=== PATIENT | male | born 1930 | race Caucasian/White ===

== ENCOUNTER 2017-04-02 10:05 | Inpatient (IN) | payer MEDICARE ==
[2017-04-02] VITALS (7 sets, daily range): BP systolic 155–183; BP diastolic 67–88; PULSE 59–109; RESP 9–18; O2SAT 98–99
[~2017-04-02] VITALS: Ht 172.7 cm; Wt 74.0 kg
[~2017-04-02 10:05] MED LIST: ASPI-973 PO; DABI150C PO; HYDR12.5 PO; LISI10TA PO; Lisinopril PO; METO-369 PO; SIMV80TA4 PO; TAMS0.4C29 PO
--- NOTE | 2017-04-02 10:15 | ED.REPORT ---
HPI-Stroke / CVA Apr 02, 2017 ED Provider: Aris Duke MD The pt is a 86 y/o male w/ a hx of CAD, HTN, hyperlipidemia, CVA, dementia, TIAs and obstructive sleep apnea presenting to the ED via EMS due to a possible CVA. His daughter reports him waking up from a nap at 0945 w/ the symptoms. He is experiencing expressive aphasia currently. The pt denies headache. The pt also reports hurting his finger yesterday from tripping and falling in the park and hitting his nose. His last known normal was at 0830 this morning. He fell asleep and when he woke up at 0945 the pts family reports his symptoms beginning. The pt has stopped in blood thinners because he is also currently dealing w/ dementia. Last night the pt had a Benadryl due to hives on his back chest and arms for the last 3 days. The pt's daughter does not want TPA and that is the reason he is off anticoagulants. Nursing Notes Stated Complaint: STROKE SYMPTOMS Chief Complaint: Stroke symptoms Nursing Notes Reviewed: Yes (Yuepu Sifang not reconciled - EMR indicates h/o PRADAXA) Allergies: Coded Allergies: No Known Allergies (Unverified Allergy, Unknown, 04/24/15) Scheduled Clonazepam (Clonazepam) 0.5 Mg Tablet 0.5 MG PO HS (Reported) Quetiapine Fumarate (Quetiapine Fumarate) 25 Mg Tablet 25 MG PO BID (Reported) Rivastigmine (Rivastigmine) 1.5 Mg Capsule 1.5 MG PO BID (Reported) Tamsulosin (Flomax) 0.4 Mg Capsule 0.4 MG PO DAILY (Reported) General Time Seen by Provider: 10:24 Chief Complaint Other (Stroke symptoms ) Hx Obtained From: Patient, Spouse, Daughter Arrived By: Walk-in Time last known well 0830 Sudden in Onset?: Yes Symptom Duration: Since onset Progression Since Onset: Unchanged Recent Healthcare: No recent hospitalization, Recent doctor visit Similar Sx Previous: Yes Risk Factors The pt's daughter does not want TPA and that is the reason he is off anticoagulants. NIH Stroke Scale Level of Consciousness: Alert and responsive (0) (but slow ) Ask Month & Age: Dysarthric/intubated (1) Open/Close Eyes/Hand Property Condition Assessor: Performs both tasks (0) (but slow) Horizontal EO Movements: None (0) Visual Flood: No visual loss (0) (but tested w/ confrontation) Facial Palsy: Minor paralysis (1) (subtle but questionable L facial asymmetry ) Right Arm Motor Drift (10s): No drift 10 sec (0) Left Arm Motor Drift (10s): No drift 10 sec (0) Right Leg Motor Drift (5s): Drift, hits bed (2) Left Leg Motor Drift (5s): Drift, not touch bed (1) Limb Ataxia FNF/Heel-Uriarte: No ataxia (0) (but slow) Sensation (Arms/Legs/Face): No sensory loss (0) Language Aphasia: Severe, fragmented (2) (but understandable, able to ID objects w/ great difficulty) Dysarthria: Slurring intelligible (1) Extinction/Inattention: No exctinct/inattent (0) NIHSS Score: 7 Time NIHSS Performed: 10:28 Date NIHSS Performed: Apr 02, 2017 Past Medical History Past Medical History 1. Coronary artery disease status post three-vessel bypass surgery in 2007. 2. Hypertension. 3. Hyperlipidemia. 4. TURP. 5. Melanoma in October 2011. 6. History of cerebrovascular accident and TIAs (Last admit for TIA 04/24/15) 7. Obstructive sleep apnea (on CPAP). 8. Dementia Smoking History Never Smoker Social History DNR/DNI Alcohol Use: Denies alcohol use Drug Use: Denies drug use Other Social History: Good social support, Ambulatory Status Independent Review of Systems Finger pain from a fall yesterday; Expressive aphasia; Hives on back, chest, and arms; Neurologic: Denies: Headache Complete sys rev & neg: except as marked. Physical Exam Initial Vital Signs Vital Signs (First) Date Time Temp Pulse Resp B/P Pulse Ox O2 Delivery O2 Flow Rate FiO2 04/02/17 10:17 155/76 04/02/17 10:31 36.7 75 9 98 Room Air Initial VS: Reviewed General/Constitutional: Awake, No acute distress Pt is very slow but in no physical pain Head / Eyes: Normocephalic Eyes are open Neck: Atraumatic, Supple, Full range of motion Respiratory / Chest: Atraumatic, Breath sounds NL, Breath sounds = bilat, No respiratory distress No airway compromise Cardiovascular: Heart rate NL, Regular rhythm, Heart sounds NL Speech: Positive: Expressive aphasia Upper Extremity / MS: Inspection NL No visible signs of injury to L hand Skin: No rash, Warm, Dry, Intact Psychiatric: Not suicidal Pt is severely demented Interpretation & Diagnostics CT brain TPA IMPRESSION: 1. There is a 1 mm tiny focus of increased density in the cortex of the posterior right frontal lobe new since the 2012 comparison study which is indeterminate and may represent a tiny focus of calcification or less likely a tiny focus of acute blood products. Recommend a short-term followup head CT for differentiation. 2. Interval development of chronic or less likely subacute encephalomalacia anterior to the right sylvian fissure. 3. Stable chronic right frontal lobe encephalomalacia. 4. Findings and recommendations discussed with Dr. Mariscal via telephone ) at 10:35 on 04/02/2017. This study fulfills neurological imaging criteria for inclusion or exclusion of acute stroke therapies based on available published neurological imaging guidelines. Dictated by: Rogelio Manning M.D. on 04/02/2017 at 10:26 Approved by: Rogelio Manning M.D. on 04/02/2017 at 10:43 Lab Results Interpretation Result Diagram: 04/02/17 1028 04/02/17 1028 Test 04/02/17 10:28 04/02/17 12:05 White Blood Count 4.6th/mm3 (3.8-10.1) Red Blood Count 4.03mil/mm3 (4.40-5.80) Hemoglobin 12.0g/dL (13.8-17.2) Hematocrit 37.4% (41.0-50.0) Mean Corpuscular Volume 92.8fL (81-100) Mean Corpuscular Hemoglobin 29.8pg (27.0-35.0) Mean Corpuscular Hemoglobin Concent 32.1% (32.0-37.0) Red Cell Distribution Width 13.7% (12.3-15.4) Platelet Count 180bil/L (150-400) Neutrophils (%) (Auto) 72.1% (40-74) Lymphocytes (%) (Auto) 15.5% (14-46) Monocytes (%) (Auto) 9.6% (4-12) Eosinophils (%) (Auto) 2.0% (0-5) Basophils (%) (Auto) 0.4% (0-3) Prothrombin Time 10.2sec (8.1-12.5) Prothromb Time International Ratio 0.95ratio Activated Partial Thromboplast Time 26.6sec (22.8-33.0) Sodium Level 142mEq/L (134-144) Potassium Level 5.2mEq/L (3.5-5.2) Chloride Level 106mEq/L (97-108) Carbon Dioxide Level 21mmol/L (18-29) Blood Urea Nitrogen 16mg/dL (8-27) Creatinine 1.17mg/dL (0.76-1.27) Estimat Glomerular Filtration Rate 63mL/min (>59) Glucose Level 121mg/dL (60-99) Calcium Level 9.0mg/dL (8.5-10.1) Total Bilirubin 0.5mg/dL (0.0-1.2) Aspartate Amino Transf (AST/SGOT) 28U/L (0-50) Alanine Aminotransferase (ALT/SGPT) 13U/L (0-44) Alkaline Phosphatase 49U/L (25-160) Troponin T 0.010ug/L (0.0-0.011) Total Protein 7.3g/dL (6.4-8.4) Albumin 3.8g/dL (3.4-5.0) Urine Color Yellow (YELLOW) Urine Appearance Clear (CLEAR,HAZY) Urine pH 6.0 (5.0-8.0) Urine Specific [place] 1.018 (1.003-1.035) Urine Protein Negativemg/dL (NEG,TRACE) Urine Glucose (UA) Negativemg/dL (NEGATIVE) Urine Ketones Negativemg/dL (NEGATIVE) Urine Occult Blood Negative (NEGATIVE) Urine Nitrite Negative (NEGATIVE) Urine Bilirubin Negative (NEGATIVE) Urine Urobilinogen Normalmg/dL (NORMAL) Urine Leukocyte Esterase Negative (NEGATIVE) Urine RBC 0-2/hpf (0-2) Urine WBC 0-5/hpf (0-5) Urine Epithelial Cells Few/hpf (NONE-MOD) Urine Crystals None seen (NONE SEEN) Urine Bacteria None/hpf (NONE-FEW) Urine Hyaline Casts None/lpf (NONE) Urine Granular Casts None seen (NONE SEEN) Urine Waxy Casts None seen (NONE SEEN) Urine Red Blood Cell Casts None seen (NONE SEEN) Urine White Blood Cell Casts None seen (NONE SEEN) Urine Mucus None seen (None Seen) Urine Trichomonas None seen (NONE SEEN) Urine Yeast None (NONE SEEN) Urinalysis Comment None Urine Culture Reflexed Not indicated Lab Results Interpretation: CBC - nl CMP - nl INT ECG Interpretation ECG Interpretation: Rate 74 NSR IVCD, consider atypical LBBB Time: 10:37 Interpreted by: ED physician Re-Eval/Medical Decision Med Decision/Clinical Course This is an 86-year-old male developed expressive aphasia and is brought in with a stroke alert. The patient seemed to be doing okay yesterday, but did have a fall move in his head. This was outside while walking. He woke up this morning and seemed to be ambulating, and its possible-but not definite-that his last known normal was 8:30 AM, but is woke from a nap and at clear difficulty with speech at around 9:45 AM. He was then brought to the emergency department. The patient with severe baseline really body dementia, whose had multiple strokes in the past,and whose pradaxa and ASA were discontinued do to the declining status with the severe dementia several months ago. On arrival patient is awake and protecting his airway. his glucose was normal and he was taken to CT - which reveals extensive encephalomalacia, possible subacute CVA, and a punctate spot thought more likely to be calcification than hemorrhage for which radiology recommends a repeat CT. Family states they are concerned he may have had a recent stroke a few days ago as well as some L facial droop was noted.possibl Patient does have a severe expressive aphasia and seems to have some increased RLE weakness (+ severe drift) on neuro exam. While sorting out candidacy for tPA, patients age, possible recent CVA (both on clinical hx and on CT), and not completely low risk CT (punctate lesion) put the patient at extremely high risk for complication. And furthermore while reviewing options, the indicates that the whole decision with the PCP about taking him off anticoagulants was regarding his poor prognosis with his dementia and that treatment with tPA would not be desired. I think this appropriate. The patient received ASA, is in a sinus rhythm, and was seen by speech therapy. The patient is being admitted for continued management. Source of Hx: Old records Re-Evaluation/Progress : Time of Eval: 12:21 Re-Evaluation/Progress Note: Pt rechecked. Informed pt of need for admission. Pt understands and agrees with plan for admission. All questions addressed. Consultation : Referral / Consult Name: Alfredo Song Consulted With: Hospitalist Call Returned at: 12:21 Emergency Planner: Will see patient, Agrees with eval, Agrees with plan, Accepts admit Differential Diagnosis: Positive: Cerebrovascular accident, Negative: Hyperglycemia, Hypoglycemia, Intoxication, alcohol, Intoxication, other drug, Post-ictal, Subarachnoid hemorrhage, Subdural hemorrhage, Substance abuse disorder, Casper's paralysis Counseled Regarding: Diagnosis, Lab results, Need for admission Patient Discharge & Departure Impression: Primary Impression: Cerebrovascular accident CVA mechanism: unspecified Qualified Code: I63.9 - Cerebral infarction, unspecified Disposition: ADMITTED TO HOSPITAL Discharge Condition All VS Reviewed: Yes Condition: Stable Referrals: Lamont Luo MD (PCP) Scribe Attestation Portions of this note were transcribed by Landen Barker. I, Dr. Duke personally performed the history, physical exam and medical decision-making; I reviewed and confirmed the accuracy of the information in the transcribed note. copies to: Lamont Luo MD, Matthew F MD Apr 02, 2017 10:15 Landen Barker Apr 02, 2017 10:34
--- NOTE | 2017-04-02 10:44 | DRSVH ---
PROCEDURE: CT BRAIN TPA INDICATIONS: Stroke TECHNIQUE: Noncontrast 4.5 mm thick angled axial sections acquired from the foramen magnum to the vertex, with c oronal reformats. COMPARISON: [facility], CT, BRAIN (TPA), 03/01/2013, 9:18. [facility], CT, B RAIN (TPA), 03/31/2012, 6:44. FINDINGS: Image quality: Excellent. CSF spaces: Basal cisterns are patent. No extra-axial fluid collections. Ventricles are normal in size and shape. Brain: Chronic right frontal encephalomalacia. There is a new area of chronic or less likely subacute encephalomalacia anterior to the right sylvian fissure. Interval development of a 1 mm focus of incr eased density in the cortex of the posterior right frontal lobe (se 2 im 21). No masses or midline s hift. Skull and face: Calvarium and visualized facial bones are intact, without suspicious lesions. Sinuses: Visualized sinuses and mastoids are clear. 3nielsie IMPRESSION: 1. There is a 1 mm tiny focus of increased density in the cortex of the posterior right frontal lobe new since the 2012 comparison study which is indeterminate and may represent a tiny focus of calcific ation or less likely a tiny focus of acute blood products. Recommend a short-term followup head CT fo r differentiation. 2. Interval development of chronic or less likely subacute encephalomalacia anterior to the right hannah vian fissure. 3. Stable chronic right frontal lobe encephalomalacia. 4. Findings and recommendations discussed with Dr. Mariscal via telephone ([phone]) at 10:35 on 04/02/2017. This study fulfills neurological imaging criteria for inclusion or exclusion of acute stroke therapie s based on available published neurological imaging guidelines. Dictated by: Rogelio Manning M.D. on 04/02/2017 at 10:26 Approved by: Rogelio Manning M.D. on 04/02/2017 at 10:43
[2017-04-02 10:49] LABS: Mean Corpuscular Hemoglobin 29.8 pg (27.0-35.0); Mean Corpuscular Volume 92.8 fL (81-100)
[2017-04-02 10:50] LABS: BASOPHILS % (AUTO) 0.4 % (0-3); MONOCYTES % (AUTO) 9.6 % (4-12); NEUTROPHILS % (AUTO) 72.1 % (40-74); Platelet Count 180 bil/L (150-400)
[2017-04-02 11:10] LABS: TROPONIN T 0.01 ug/L (0.0-0.011)
[2017-04-02 11:27] LABS: INR 0.95 ratio
[2017-04-02] MEDS ORDERED: Alum-Mag Hydrox-Simeth 30 mL Suspension PO PRN (12:15)
[2017-04-02] MEDS ORDERED: Ondansetron 2 mg/mL 2 mL Inj IVPUSH PRN (12:15)
[2017-04-02] MEDS ORDERED: Polyethylene Glycol (PEG) 17 Gm Powder PO PRN (12:15)
--- NOTE | 2017-04-02 12:27 | NUR ---
Evaluation completed. Please go to "Notes" then click on "Assessments and Notes" (bottom left corner of screen). Then select appropriate discipline tab on top of screen.
--- NOTE | 2017-04-02 12:33 | PCM.HPMED ---
Subjective Date of Service Apr 02, 2017 Primary Provider: Admitting Physician: Alfredo Song Primary Care Physician: Lamont Luo MD Attending Physician: Alfredo Song Chief Complaint: Patient is an 86-year-old male with medical history of Lewy body dementia, multiple hx strokes, CAD, hypertension and dyslipidemia presents the ED with significant slurred speech. History of Present Illness: Per and daughter, patient was last seen normal around 8:30 AM, found with significant slurred speech about 45 minutes later after his morning nap.. Patient had a blank stare and then had slurring of speech. He was asked emergently taken to the ED for further evaluation. NIH stroke scale 7 on a on arrival. CT head showed punctate lesion 1 mm at the posterior right frontal, mild suspicious for hemorrhage. Patient however is a DNR/DNI and per DPOAE , states nonaggressive management. On evaluation, patient alert and oriented 3, had some slurring of speech, however was able to complete the NIH scoring again, 3. Patient states he felt significantly better than this morning, slurred speech has decreased. Patient denies any unilateral weakness in extremities, no headaches, lightheadedness, or dizziness. He further denies any chest pain, shortness of breath, or palpitation. Review of Systems: A comprehensive review of systems was conducted with the patient and found to be negative except as above in the History of Present Illness. Allergies Coded Allergies: No Known Allergies (Unverified Allergy, Unknown, 04/24/15) Home Medications Clonazepam 0.5 mg twice a day Seroquel 25 mg 1-2 tablet twice a day Exam Vital Signs & I/O Vital Sign- Last 8 Hours Date Time Temp Pulse Resp B/P Pulse Ox O2 Delivery O2 Flow Rate FiO2 04/03/17 06:25 36.3 75 18 161/71 96 Room Air 04/03/17 00:30 CPAP/BIPAP Intake and Output- Last 8 Hour 04/03/17 Cumulative From/Thru 07:00 04/02/17 10:31 - 04/03/17 06:25 Intake Total 50 ml 170 ml Output Total 600 ml Balance 50 ml -430 ml Intake Oral 50 ml 150 ml IV Total 20 ml Output Urine Total 600 ml # Voids 2 2 Lab & Micro Results Laboratory Tests Test 04/02/17 10:28 04/02/17 12:05 04/03/17 06:00 White Blood Count 4.6th/mm3 (3.8-10.1) Red Blood Count 4.03mil/mm3 (4.40-5.80) Hemoglobin 12.0g/dL (13.8-17.2) Hematocrit 37.4% (41.0-50.0) Mean Corpuscular Volume 92.8fL (81-100) Mean Corpuscular Hemoglobin 29.8pg (27.0-35.0) Mean Corpuscular Hemoglobin Concent 32.1% (32.0-37.0) Red Cell Distribution Width 13.7% (12.3-15.4) Platelet Count 180bil/L (150-400) Neutrophils (%) (Auto) 72.1% (40-74) Lymphocytes (%) (Auto) 15.5% (14-46) Monocytes (%) (Auto) 9.6% (4-12) Eosinophils (%) (Auto) 2.0% (0-5) Basophils (%) (Auto) 0.4% (0-3) Prothrombin Time 10.2sec (8.1-12.5) Prothromb Time International Ratio 0.95ratio Activated Partial Thromboplast Time 26.6sec (22.8-33.0) Sodium Level 142mEq/L (134-144) 149mEq/L (134-144) Potassium Level 5.2mEq/L (3.5-5.2) 4.1mEq/L (3.5-5.2) Chloride Level 106mEq/L (97-108) 111mEq/L (97-108) Carbon Dioxide Level 21mmol/L (18-29) 21mmol/L (18-29) Blood Urea Nitrogen 16mg/dL (8-27) 15mg/dL (8-27) Creatinine 1.17mg/dL (0.76-1.27) 1.26mg/dL (0.76-1.27) Estimat Glomerular Filtration Rate 63mL/min (>59) 58mL/min (>59) Glucose Level 121mg/dL (60-99) 95mg/dL (60-99) Calcium Level 9.0mg/dL (8.5-10.1) 9.0mg/dL (8.5-10.1) Total Bilirubin 0.5mg/dL (0.0-1.2) Aspartate Amino Transf (AST/SGOT) 28U/L (0-50) Alanine Aminotransferase (ALT/SGPT) 13U/L (0-44) Alkaline Phosphatase 49U/L (25-160) Troponin T 0.010ug/L (0.0-0.011) Total Protein 7.3g/dL (6.4-8.4) Albumin 3.8g/dL (3.4-5.0) Thyroid Stimulating Hormone (TSH) 3.410uIU/mL (0.450-4.500) Urine Color Yellow (YELLOW) Urine Appearance Clear (CLEAR,HAZY) Urine pH 6.0 (5.0-8.0) Urine Specific [place] 1.018 (1.003-1.035) Urine Protein Negativemg/dL (NEG,TRACE) Urine Glucose (UA) Negativemg/dL (NEGATIVE) Urine Ketones Negativemg/dL (NEGATIVE) Urine Occult Blood Negative (NEGATIVE) Urine Nitrite Negative (NEGATIVE) Urine Bilirubin Negative (NEGATIVE) Urine Urobilinogen Normalmg/dL (NORMAL) Urine Leukocyte Esterase Negative (NEGATIVE) Urine RBC 0-2/hpf (0-2) Urine WBC 0-5/hpf (0-5) Urine Epithelial Cells Few/hpf (NONE-MOD) Urine Crystals None seen (NONE SEEN) Urine Bacteria None/hpf (NONE-FEW) Urine Hyaline Casts None/lpf (NONE) Urine Granular Casts None seen (NONE SEEN) Urine Waxy Casts None seen (NONE SEEN) Urine Red Blood Cell Casts None seen (NONE SEEN) Urine White Blood Cell Casts None seen (NONE SEEN) Urine Mucus None seen (None Seen) Urine Trichomonas None seen (NONE SEEN) Urine Yeast None (NONE SEEN) Urinalysis Comment None Urine Culture Reflexed Not indicated Result Diagram: 04/02/17 1028 04/03/17 0600 Review of Systems: Constitutional: Negative, except as otherwise mentioned in the history above. Ophthalmologic: Negative, except as otherwise mentioned in the history above. Cardiovascular: Negative, except as otherwise mentioned in the history above. Respiratory: Negative, except as otherwise mentioned in the history above. Gastrointestinal: Negative, except as otherwise mentioned in the history above. Genitourinary: Negative, except as otherwise mentioned in the history above. Musculoskeletal: Negative, except as otherwise mentioned in the history above. Neurological: Negative, except as otherwise mentioned in the history above. Psychiatric: Negative, except as otherwise mentioned in the history above. Hematologic/Lymphatic: Negative, except as otherwise mentioned in the history above. Allergic/Immunologic: Negative, except as otherwise mentioned in the history above. PMH Hypertension Dyslipidemia Coronary artery disease History of OR Left bundle branch block since 2014 History of A. fib Chronic kidney disease Obstructive sleep apnea CVA 2010, 2011 benign prostatic hypertrophy Spinal cyst Surgical History CABG 4 SOLIS to LAD, RSVG 3 2007 Hernia repair Prostate surgery Spinal surgery Family History Father of stroke Mother of old age 101yo Social History Hx Alcohol Use: No Hx Substance Use: No Hx Tobacco Use: No Smoking Status: Never Smoker Exam Vital Signs Vital Sign - Last Date Time Temp Pulse Resp B/P Pulse Ox O2 Delivery O2 Flow Rate FiO2 04/02/17 11:38 59 15 166/67 99 Room Air 04/02/17 10:31 36.7 Exam General: No acute distress, appropriately interactive HEENT: Normocephalic, atraumatic. PERRLA, EOMI, Anicteric sclerae, moist conjunctivae. Neck: No JVD, No bruits. No lymphadenopathy or thyromegaly. Cardiovascular: Regular rate and rhythm with no murmurs, rubs, or gallops appreciated Pulmonary: b/l air sound with no crackles, wheezes, or rhonchi. no use of accessory muscles. Abdomen: +Bowel sound, Soft, nontender, nondistended. Extremities: No clubbing or cyanosis, no lymphedema, no b/l lower leg edema Skin: Normal temperature, turgor, and texture; no rash. No visualized skin ulcer. Neurological: CN II-VII grossly intact, moving equally on all 4 extremities, INH score 3 severe expressive fascia however able to identify objects. And dysarthria Psychiatric: Normal mood and affect. AOx3 Lab and Diagnostics Result Diagram: 04/02/17 1028 04/03/17 0600 Assessment & Plan Patient is an 86-year-old male with medical history of Lewy body dementia, multiple hx strokes, CAD, hypertension and dyslipidemia presented with a expressive aphagia, possible subacute CVA. Cerebral vascular accident -CT-head remonstrate chronic right frontal lobe encephalomalacia, possible posterior right frontal lobe bleeding 1mm. -rapidly improving sx NIHSS 7--> 2 -probably embolic, some concerns for hemologic -Will repeat CT-head in the AM, holding off Heparin DVT prophylaxis for now, will need to restart on day 2hospitalization -Maintain BP 160/90 -Speech therapy clear for Stim diet, PT ordered -No anticoagulation/statin/no TPA, DNR/DNI per DPOA and living will Hypertension -permissive hypertension -Consider labetalol IV should SBP>200's Lewy Body Dementia -with components of hallucinations -Seroquel 25mg BID -Olanzapine 5 mg every 6 hours and Ativan 0.5mg as needed for agitation Hyperglycemia -A1C ordered CODE STATUS DNR/DNI DVT prophylaxis: pneumatic pump, can start DVT heparin prophylaxis on day 2 of admission Patient Status: Patient is admitted under inpatient status with expected length of stay GREATER than 2 midnights due to severity of presenting symptoms, risk of adverse event, and complexity of treatment plan. GI Prophylaxis: Not indicated VTE Prophylaxis: SCDs VTE Mechanical Devices: Intermittant Pneumatic CD Resuscitation Status: DNR/DNI:Do Not Resuscitate/Intubate Attending Statement The patient was seen and examined together with Dr. Valdez on 04/02/17 and I agree with the history, exam and plan as outlined in the note above. Charlie Valdez DO Apr 02, 2017 12:33 Alfredo Song Apr 03, 2017 07:36
[2017-04-02 12:53] LABS: APPEARANCE,URINE CLEAR (CLEAR,HAZY); COLOR,URINE YELLOW (YELLOW); OCCULT BLOOD,URINE NEGATIVE (NEGATIVE); UROBILINOGEN,URINE NORMAL (NORMAL)
[2017-04-02] MEDS ORDERED: LORazepam 0.5 mg Tablet PO PRN (13:20)
[2017-04-02] MEDS ORDERED: KLO5T PO ×2 (13:39→13:40)
[2017-04-02] MEDS ORDERED: TAMS0.4C98 PO (13:39)
[2017-04-02] MEDS ORDERED: RIVA1.5C6 PO (13:39)
[2017-04-02] MEDS ORDERED: QUET25TA73 PO (13:41)
[2017-04-02] MEDS ORDERED: Heparin 5,000 Unit/mL Inj SUBQ SCH (16:30)
--- NOTE | 2017-04-02 16:38 | NUR ---
Admit Pt admitted to [facility] room 3011 at approx 1315. report received from Freya barraza RN. Upon arrival to the floor, pt alert and awake. Oriented to person, place, and situation. at bedside. VS and weight obtained. Admission completed by RN. No neuro deficits noted by this RN other than delayed speech and word searching. Pt has hx of lewy body dementia, and has frequent hallucinations and paranoid thoughts - per . None noted at this time, but will continue to monitor. Bed low and locked, side rails up x3, call light in reach, adry alarm in place.
[2017-04-02] MEDS ORDERED: Labetalol 5 mg/mL 20 mL Inj IVPUSH PRN (17:30)
--- NOTE | 2017-04-02 18:08 | PCM.ADCARE ---
Advance Care Planning Note Purpose of Encounter: Goals of care Parties in Attendance: Patient, his and daughter Decisional Capacity: patient not fully decisional due to underlying dementia. His (DPOA) making decisions Subjective: Report of ongoing and worsening cognitive disfunction and recurrent acute TIA Objective: patient awake, alert and oriented to place. Goals of Care Determinations: patient's notes that in the past patient had expressed clear wishes of wanting to be kept comfort care and avoid coming to hospital if possible. patient verifies the 's statement. Patient's hoping for possible placement of patient as she may not be able to continue caring for him at home by herself vs additional home support Plan: repeat head CT in AM. Palliative care consult and social work consult in AM CODE STATUS: DNR/DNI Time Spent Adv.Care Plannin min Alfredo Song Apr 02, 2017 18:08
--- NOTE | 2017-04-02 19:28 | NUR ---
Pt behaviors/Restraints Around 183, TAX ADJUSTER notified RN that pt was up and trying to leave room. RN went to speak with pt and redirect him to sit back in bed. Pt was standing up, with all his clothes on, and his belongings in his hands, stating that he was going to go home. Pt was pushing his way towards the door, but RN able to get pt to turn around and have a seat for a moment, while she spoke to her lost charge card clerk. Pt had PO PRN ativan available, so RN pulled that and tried to offer it to pt. After several attempts, pt continued to refuse and exited room. TAX ADJUSTER walking the halls with pt, as pt searched for exit door. RN tried to call at 2 different numbers, and other family member listed, but unable to reach any family to ask them to come in and sit with him. Pt continue to escalate in angry behavior. Security called, and paged. Order received from Dr. Valdez for [facility] bed and 1x dose of IM zyprexa, as well as prn IV ativan. After more discussion with pt, pt refusing to sit down or to be redirected. Pt was assisted by several security staff and floor staff to wheelchair and was put into bed. Pt attempting to hit and kick staff during this transfer, and yelling. IM medication administered. RN received call back from , and explained the situation to her. verbalizes understanding and states that she will be coming in. Pt continues to be angry - yelling and thrashing around in [facility] bed. Pt ripped out IV. New one was placed with the assistance of several staff members and IV ativan administered. Will continue to assist restraints q 2 hours and assess pts need.
--- NOTE | 2017-04-02 21:04 | NUR ---
Agitation Pt has been confused/agitated yelling and trying to get out of the soma bed. Pt does not seem to respond to conversation. Lorazepam administered as ordered by MD. Does not seem to be effective as pt still trying to get out of the bed yelling and screaming. Pt's Caro arrived on floor and helped with giving the medication seroquel. Pt's states "Do not give the olanzapine or any zapine drugs as it could cause much more confusion and hallucination for him, especially with his Lewy Body dementia". Will pass on the report to the morning nurse. Currently pt is still trying to get out of bed, non-conversational. Telemetry taken off as pt does not able to keep it on. Continuing to monitor. Addendum: 04/03/17 at 0612 by DARWIN TERRY RN 0600 pt is still agitated and confused. Pt screaming and yelling. Ativan administered. Pt has calmed down and just lay down in bed. Unable to have the telemetry in place due to pt's agitation and confusion. Continuing to monitor.
[2017-04-03 06:25] VITALS: BP 161/71; PULSE 75; RESP 18; O2SAT 96
--- NOTE | 2017-04-03 08:29 | NUR ---
Agitation Unable to obtain any form of assessment due to patient being aggressive and combative with staff and this RN. Offered toileting needs yet patient stated "I would rather piss in here". Offered breakfast yet patient attempted to pour the custard over this RN's head. Soma continues to be zipped up for safety for both patient and staff. Frequent rounding done.
--- NOTE | 2017-04-03 09:52 | PCM.PNMED ---
Subjective Date of Service Apr 03, 2017 Subjective ROS limited 2ndry to patient not answering most questions. But does deny any pain or discomfort right now Exam Vital Signs Vital Sign - Last Date Time Temp Pulse Resp B/P Pulse Ox O2 Delivery O2 Flow Rate FiO2 04/03/17 06:25 36.3 75 18 161/71 96 Room Air Intake and Output 04/02/17 04/02/17 04/03/17 Cumulative From/Thru 14:59 22:59 06:59 04/02/17 10:31 - 04/03/17 06:25 Intake Total 120 ml 50 ml 170 ml Output Total 600 ml 600 ml Balance -480 ml 50 ml -430 ml Intake Oral 100 ml 50 ml 150 ml IV Total 20 ml 20 ml Output Urine Total 600 ml 600 ml # Voids 2 2 General: Alert, No Acute Distress Head: Normal Eyes: PERRLA, EOMI, Scleral Anicteric Nose: Mucous Membr Moist/[place] Mouth: Mucous Membr Moist/[place] Neck: Supple Chest & Lungs: Chest Wall Normal Cardiovascular: Regular Rate/Rhythm Extremities: No cyanosis/clubbing/edma bilat Neurological: Grossly Neurologically Intact, Normal Speech IVs and Medications Medications Reviewed: Medications were reviewed in detail Lab and Diagnostics Result Diagram: 04/02/17 1028 04/03/17 0600 Assessment & Plan 86-year-old male with medical history of presumed Lewy body dementia, multiple hx strokes, CAD, hypertension and dyslipidemia presented with a expressive aphasia # Acute agitation and aggressive behavior overnight. Not present on admission - Likely exacerbation of his underlying Lewy body dementia - Currently in restraint (Soma bed) - Will need to discuss with family/DPOA regarding possible use of anti- psychotic medications given possible side effects - Will try one dose of Haldol prior to CT brain # Acute transient aphasia suspicious for acute TIA vs possible CVA - CT-head remonstrate chronic right frontal lobe encephalomalacia, possible posterior right frontal lobe bleeding 1mm. - Rapidly improving sx NIHSS 7--> 2 - Some concerns for hemologic stroke as note above# - Will try to repeat CT-head today if patient agreeable and cooperative - Maintain BP 160/90 - Speech therapy clear for Stim diet, PT ordered - No anticoagulation/statin/no TPA, DNR/DNI per DPOA and living will # Chronic Hypertension - Permissive hypertension - Consider labetalol IV should SBP>200's Lewy Body Dementia - With components of hallucinations - Seroquel 25mg BID - Olanzapine 5 mg every 6 hours and Ativan 0.5mg as needed for agitation # Hyperglycemia - A1C ordered # Goals of care - Palliative care consulted today. Will followup with recs Dispo: 2-3 days pending improved mental status and behavior as well as establishing goals of care GI Prophylaxis: Not indicated VTE Prophylaxis: SCDs VTE Mechanical Devices: Intermittant Pneumatic CD Resuscitation Status: DNR/DNI:Do Not Resuscitate/Intubate Alfredo Song Apr 03, 2017 09:52
[2017-04-03] MEDS ORDERED: Haloperidol 5 mg/mL Inj IVPUSH PRN (10:20)
--- NOTE | 2017-04-03 11:41 | NUR ---
Palliative Care Palliative Care received order from Dr Song 04/03/17 to assist with goals of care. Patient admitted 04/02/17. Ingris Baltazar
[2017-04-03 14:37] VITALS: BP 116/67; PULSE 79; RESP 20; O2SAT 100
--- NOTE | 2017-04-03 14:44 | NUR ---
Social Work-initial assessment: Data& assessment:See initial assessment. Pt is a 86 y/o male who was admitted on 04/02/17 for CVA per H&P. Pt's insurance is [facility] and PCP is Lamont Luo MD. EMR reviewed. Pt's readmission score is 4-high risk. HARRISON met with pt's and daughter to discuss discharge planning, SW role explained. Pt has dementia at baseline and has been caring for pt at home. Pt does not use any DME and does not drive. Pt has no HH or SNF history. Pt has no fdc care insurance or VA benefits. SW discussed DPOA/ advanced directive, they confirm this has been completed,SW encouraged a copy to be brought in. Pt has been up independent in his room. Pt does not have capacity for self care at this time. Palliative care meet with pt's family and they may be interested in Hospice services. Palliative Care BRICK SHADER to set up Hospice information visit. Family is either looking at having pt return home with increased support or having pt to go Memory care, MD orders have been received. states she has toured [facility], [facility], [facility], and [facility] and has all the private pay quotes from these facilities. aware that any caregiving assistance or memory care would be private pay. Pt's wonders about SNF with pt's [facility], HARRISON explained that [facility] would likely not authorize SNF and he may not be an appropriate rehab candidate. Family states an understanding. would like HARRISON to contact [facility] and [facility] and send referrals to both of these facilities. HARRISON spoke with Minnie [phone] at [facility], Minnie states they have space and would look at referral. HARRISON faxed update clinicals to [phone]. HARRISON spoke with Teresa at [facility] [phone] and she is agreeable to look at referral, HARRISON faxed referral to [phone]. HARRISON also provided pt's and daughter with private pay caregiving resources( Senior Resource Guidebook provided). MD to work on pt's medications to assist with stabilization. HARRISON provided discharge planning checklist and encouraged them to call with questions,phone number provided. HARRISON will continue to follow. Plan:Referrals have been made to [facility] and [facility] for memory care. Information provided to family on Private pay caregivers. Palliative care to set up Hospice information visit. SW will continue to follow. LAURA Bullock Addendum: 04/03/17 at 1454 by MADYSON CARBALLO SS Amended: Links added. Addendum: 04/03/17 at 1542 by MADYSON CARBALLO SS SW updated by Palliative care LAURA that pt has Hospice information visit tomorrow at 1100. LAURA Bullock
--- NOTE | 2017-04-03 14:45 | NUR ---
Evaluation completed. Please go to "Notes" then click on "Assessments and Notes" (bottom left corner of screen). Then select appropriate discipline tab on top of screen.
--- NOTE | 2017-04-03 15:21 | PCM.CONPAL ---
Date of Service Apr 03, 2017 Date of Hospital Admission: Apr 02, 2017 at 12:18 Date of Palliative Consult: Apr 03, 2017 Requesting Provider: Alfredo Song Reason for Consultation Palliative Care received order from Dr Song 04/03/17 to assist with goals of care. Patient admitted 04/02/17. Hospital Unit @time of consult: Medical/Pediatric Care (room 3011) Palliative Care Recommendation Summary of palliative recommendations: Symptom management (Pain/other): 1. Agitated delirium with hallucinations. in context of Lewy Body Dementia. Home meds were 25mg seroquel po BID and 0.5mg clonazepam at HS. I recommend 25mg seroquel po BID and 12.5mg po q 3 hours prn breakthrough agitation. Discontinue haldol, and ativan as these are likely to make Lewy Body dementia symptoms worse. Also stop olanzapine as reports that this has aggravated his agitation as well. 2. Dr. Corona recommends to that we get a psychiatry consult, as says that seroquel makes him quieter, but doesn't relieve his hallucinations (of Urdu war past experiences and paranoid thoughts related to people spying on him). I am unsure whether we need to increase seroquel dosing or try a different anti-psychotic to alleviate hallucinations and would appreciate psychiatry's input on the best course to take. 3. Agree with 2nd Head CT to re-evaluate possible stroke vs. TIA. -->However , 2nd CT done 04/03 results back and essentially with no acute evidence of stroke , no new information. Patient's Functional Baseline: describes his memory loss as startig about 7 years ago, 2 years before the stroke/TIA symptoms. He is able to get to BR by himself, but wears disposable underwear. He needs help with washing and dressing. Pt is FAST 6d (still able to walk, but unstable gait), is certain no fecal incontinence yet. His speech intact with some word finding and slurring of words at times. 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 She says that in last few months he has been hallucinating daily about soldiers moving around everywhere in his house and yard and people with cameras spying on him. Prognosis: Per Zohaib Index, he is at 10 points or about 20% chance of dying in next 6 months. However, his reports he has not been eating much. He may have lost weight, which would increase his Zohaib Index score somewhat. I cannot access outpatient records to document this. In the hospital today, he has been nonverbal and inattentive, my clinical impression is that he has acute delirium in the context of his Lewy Body Dementia. I think it is appropriate for Hospice to consider him for eligibility in the Medicare hospice program, although I am not sure he quite meets criteria. I will defer to [facility] on this. They may be able to document a weight loss from outpatient records. I have asked my partner, Dr. Delacruz, to see him again tomorrow and give his clinical input. DPOA/Advanced Directives/POLST: Dr. Corona and met today (04/03) and she signed a POLST that asks for DNR/DNI with comfort measures (comfort goals to allow him to eat what he wants, no return to hospital after he is discharged from here this admission), no feeding artificially and no antibiotics (but pain management if he has pain with a future infection). Mrs. Caro Alvarez (his and HCPOA) would like to have a hospice information visit and this has been arranged for 11a.m. on 04/04. The patient is not capacitated due to his dementia. Family/emotional support: The Maris have two adult daughters: Bettina (lives in [place], but currently traveling in [place]) and Elaine (lives in [facility] ). Mrs. Alvarez is sole caregiver currently and is under a lot of caregiver stress. Disposition: He has formerly been cared for at home and his spouse is now acknowledging that his care needs have become too complex for her to handle. Mrs. Alvarez would like him to be placed in a dementia unit. She and her daughter have been looking at places, and she is interested in [facility]. Case Management is aware. Problems: Resuscitation Status Resuscitation Status: DNR/DNI:Do Not Resuscitate/Intubate POLST Updates/Changes Previous POLST?: No POLST Last Review Date: Apr 03, 2017 Antibiotics: No Antibiotics Artificially Admin Nutrition: No Artifical Nutrition by Tube POLST Discussed with: Spouse/Other POLST Review Outcome: New Form Completed . Advanced Care Planning Address: POLST, Code status change, Comfort care Pt History History of Present Illness Patient Identification: Mr. Alvarez was admitted for new onset slurred speech, and found to have an acute small stroke vs. TIA per CT head which showed punctate lesion 1 mm at the posterior right frontal, mild suspicious for hemorrhage. Overnight he had rapidly improving sx NIHSS 7--> 2. He was not considered for further workup as he is a DNR/DNI and per his (DPOAE), she wants nonaggressive management. Hospital Course: Today (04/03) patient alert and oriented 2, with some slurring of speech. Patient denies any unilateral weakness in extremities, no headaches, lightheadedness, or dizziness. He drowsy, no signs of pain, shortness of breath , or other distress. at bedside gives his history on interview. Past Medical History Significant PMH Noted: Hypertension Dyslipidemia Coronary artery disease History of [place] Left bundle branch block since 2014 History of A. 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. Hx Alcohol Use: No Hx Substance Use: No Hx Tobacco Use: No Smoking Status: Never Smoker Medications Current Medications: Current Medications Heparin Sodium (Porcine) 5,000 unit Q8 SUBQ; Start 04/02/17 at 16:30; Stop 04/02 at 16:30; Status DC Al Hydrox/Mg Hydrox/Simethicone 30 ml Q6H PRN PO; Start 04/02/17 at 12:15 Ondansetron HCl 4 to 8 mg Q4H PRN IVPUSH; Start 04/02/17 at 12:15 Senna 17.2 mg BID PRN PO; Start 04/02/17 at 12:15 Polyethylene Glycol 17 gm DAILY PRN PO; Start 04/02/17 at 12:15 Quetiapine Fumarate 25 mg BID PO Last administered on 04/03/17 11:16; Admin Dose 25 MG; Start 04/02/17 at 20:30 Lorazepam 0.5 mg TID PRN PO; Start 04/02/17 at 13:20; Stop 04/02/17 at 18:44; Status DC Labetalol HCl 20 mg Q15MIN PRN IVPUSH; Start 04/02/17 at 17:30 Lorazepam 0.5 mg TID PRN IVPUSH Last administered on 04/03/17 05:41; Admin Dose 0.5 MG; Start 04/02/17 at 18:40; Stop 04/03/17 at 08:16; Status DC Quetiapine Fumarate 12.5 mg Q3H PRN PO; Start 04/03/17 at 08:00 Haloperidol Lactate 5 mg ONCE PRN IVPUSH; Start 04/03/17 at 10:20 Scheduled Clonazepam (Clonazepam) 0.5 Mg Tablet 0.5 MG PO HS Quetiapine Fumarate (Quetiapine Fumarate) 25 Mg Tablet 25 MG PO BID Rivastigmine (Rivastigmine) 1.5 Mg Capsule 1.5 MG PO BID Tamsulosin (Flomax) 0.4 Mg Capsule 0.4 MG PO DAILY Objective Findings Exam Vital Sign - Last Date Time Temp Pulse Resp B/P Pulse Ox O2 Delivery O2 Flow Rate FiO2 04/03/17 14:37 36.3 79 20 116/67 100 Room Air Intake and Output 04/02/17 04/02/17 04/03/17 Cumulative From/Thru 15:00 23:00 07:00 04/02/17 10:31 - 04/03/17 06:25 Intake Total 120 ml 50 ml 170 ml Output Total 600 ml 600 ml Balance -480 ml 50 ml -430 ml Intake Oral 100 ml 50 ml 150 ml IV Total 20 ml 20 ml Output Urine Total 600 ml 600 ml # Voids 2 2 Objective General: Alert, No Acute Distress Head: Normal Eyes: PERRLA, EOMI, Scleral Anicteric Nose: Mucous Membr Moist/[place] Mouth: Mucous Membr Moist/[place] Neck: Supple Chest & Lungs: Chest Wall Normal Cardiovascular: Regular Rate/Rhythm Extremities: No cyanosis/clubbing/edma bilat Neurological: Grossly Neurologically Intact, Normal Speech Medications Medications Reviewed: Medications were reviewed in detail Lab and Diagnostics Result Diagram: 04/02/17 1028 Lab/Diagnostics Lab and Imaging results reviewed in detail in EMR. Time spent Total time 50 minutes; >50% face to face with patient and/or family, providing counselling regarding plans and recommendations, and in care coordination with his/her medical teams. I also spent an additional 30 minutes counseling for advanced care planning with the patient/the patients family/the surrogate decision maker. copies to: Suly Luo MD; Lamont Luo MD; Rosetta Thornton MD, Cynthia MD Apr 03, 2017 15:21
--- NOTE | 2017-04-03 15:28 | NUR ---
Palliative care note D/A: Palliative care referral received today for this gentleman with Lewey Body dementia. He has formerly been cared for at home and his spouse is now acknowledging that his care needs have become too complex for her to handle. Dr. Corona has spoken with family about pt care needs and they are interested in a hospice informational visit. Dr. Corona has kindly written order for hospice info visit. Met twice with pt spouse and dtr, who is here from [facility] with her son and 3 year old daughter. Discuss the concept of hospice and provide the Hospice Services informational sheet. Family elects for [facility]. Phone call to intake desk and leave messages asking for info visit times. Connect with Bet[facility] who is able to offer 1100 appt with Radha on 04/04/17, which family accepts. Family aware that [facility] staff will first meet with them in the room and then meet privately elsewhere if that is what is desired. Dr. Corona aware of above. Msg left for janusz Lee as well. P: Palliative care to follow. Janell LEON, CCM
--- NOTE | 2017-04-03 15:43 | DRSVH ---
PROCEDURE: CT BRAIN WITHOUT CONTRAST ([id number]) INDICATIONS: CVA. hemoragic? TECHNIQUE: Noncontrast 4.5 mm thick angled axial sections acquired from the foramen magnum to the vertex, with c oronal reformats. COMPARISON: CT brain 04/02/2017, 12/30/2016, 04/24/2015, 04/18/2014 FINDINGS: Image quality: Excellent. CSF spaces: Basal cisterns are patent. No extra-axial fluid collections. The ventricles are symmet andrews in size and shape. Brain: No intracranial bleeds or masses. Focal hypodensities in the right frontoparietal lobes come bridging over the convexity appear unchanged from previous exams consistent with prior infarcts. The 2 mm rounded hyperdensity noted in the cortex of the right parietal lobe, image 23, is unchanged from 12/30/2016 and other priors, therefore not representing acute blood products but calcification. There is cerebral volume loss for age, with resultant ventricular and sulcal prominence. There are periventricular and deep white matter chronic small vessel ischemic changes. There is intracranial i nternal carotid artery atherosclerosis. Skull and face: Calvarium and visualized facial bones appear intact, without suspicious lesions. Sinuses: Visualized sinuses and mastoids are clear. IMPRESSION: 1. No acute intracranial abnormality. 2. Chronic right-sided frontoparietal infarcts. 3. Age related plane loss and chronic deep white matter ischemic changes. Dictated by: Jb Brizuela M.D. on 04/03/2017 at 15:33 Approved by: Jb Brizuela M.D. on 04/03/2017 at 15:41
--- NOTE | 2017-04-03 18:22 | NUR ---
Behavior Patient alert and oriented to self. Speech continues to be mixed and jumbled, word salad. Is compliant with cares. Was found to be talking to a pillow asking it a question. Was combative and agitated with staff early in shift and no longer experiencing this. Appetite is improving per family. Redirected patient to bed. Bed alarm in place.
[2017-04-03 19:55] VITALS: BP 165/85; PULSE 79; RESP 18; O2SAT 100
[2017-04-04 06:05] VITALS: BP 141/74; PULSE 75; RESP 16; O2SAT 93
--- NOTE | 2017-04-04 06:17 | NUR ---
NOC/Restraint Pt has been confuse and aggressive towards staff around 2049. Roaming around grabbing the keyboard and hitting the sink and the staff. notified and ordered enclosure bed for safety. Pt has been yelling and screaming most of the night. 1:1 sitter provided. Redirection and divertional activity ineffective. Enclosure bed d/c until 0600. Pt has been cooperative with care. Denies any complains of pain. Hourly rounding, sitter for non profit job titles/observation. Continuing to monitor.
--- NOTE | 2017-04-04 10:40 | PCM.PNMED ---
Subjective Date of Service Apr 04, 2017 Subjective No new issues/complaints. Exam Vital Signs Vital Sign - Last Date Time Temp Pulse Resp B/P Pulse Ox O2 Delivery O2 Flow Rate FiO2 04/04/17 08:00 CPAP/BIPAP 04/04/17 06:05 36.7 75 16 141/74 93 Intake and Output 04/03/17 04/03/17 04/04/17 Cumulative From/Thru 15:00 23:00 07:00 04/02/17 10:31 - 04/04/17 06:44 Intake Total 1158 ml 100 ml 1428 ml Output Total 750 ml 1350 ml Balance 408 ml 100 ml 78 ml Intake Oral 1158 ml 100 ml 1408 ml IV Total 0 ml 20 ml Output Urine Total 750 ml 1350 ml # Voids 1 2 5 # Bowel Movements 0 0 Exam General: Alert, No Acute Distress Head: Normal Eyes: PERRLA, EOMI, Scleral Anicteric Nose: Mucous Membr Moist/[place] Mouth: Mucous Membr Moist/[place] Neck: Supple Chest & Lungs: Chest Wall Normal. Cardiovascular: Regular Rate/Rhythm Extremities: No cyanosis/clubbing/edema bilat Neurological: Grossly Neurologically Intact, Normal Speech IVs and Medications Medications Reviewed: Medications were reviewed in detail Lab and Diagnostics Result Diagram: 04/02/17 1028 04/03/17 0600 Assessment & Plan 86-year-old male with medical history of presumed Lewy body dementia, multiple hx strokes, CAD, hypertension and dyslipidemia presented with a expressive aphasia # Acute agitation and aggressive behavior on the night of admission. Not present on admission - Likely exacerbation of his underlying Lewy body dementia - Reported more cooperative last night and this morning so far. - Psychiatry consulted today to help with further medication management # Acute transient aphasia suspicious for acute TIA - CT-head remonstrate chronic right frontal lobe encephalomalacia - Some concerns for hemologic stroke on initial CT seems ruled out on repeat CT - Speech therapy clear for Stim diet - PT on hold until mental status more stable and goals of care defined - No anticoagulation/statin/no TPA, DNR/DNI per DPOA and living will # Chronic Hypertension - Continue with current care Lewy Body Dementia - With components of hallucinations - Seroquel 25mg BID - Psych consult as noted above # Goals of care - Appreciate palliative care consult. Will followup with recs - Plan for hospice info visit today Dispo: 1-2 days pending improved mental status and behavior as well as establishing goals of care GI Prophylaxis: Not indicated VTE Prophylaxis: SCDs VTE Mechanical Devices: Intermittant Pneumatic CD Resuscitation Status: DNR/DNI:Do Not Resuscitate/Intubate Alfredo Song Apr 04, 2017 10:39
[2017-04-04 13:50] VITALS: BP 153/88; PULSE 77; RESP 18; O2SAT 97
--- NOTE | 2017-04-04 14:07 | NUR ---
Palliative care note D/A: Met with Radha from [facility] post info visit. She indicates that pt family signed consents. Phone call to janusz Lee to alert. P: Palliative care to follow as needed. Janell LEON, CCM
--- NOTE | 2017-04-04 14:41 | NUR ---
Social Work-continued d/c planning: Data:EMR reviewed. Pt is on day 2 of hospitalization for CVA per H&P. Pt is not medically stable anticipate a few more days. MD informed HARRISON in morning rounds that psychiatry is to see pt today and work on medication adjusts for pt's behaviors. HARRISON spoke with both [place] [facility] who confirm they would be willing to come into the hospital and complete assessment whenever needed. Family meet with Hospice today and SW informed by Palliative Care HAT MARKER that they have signed consents. SW followed up with pt's and daughter to further discuss discharge planning, SW role explained. Pt's has decided that she would rather take pt home then have him go to a facility. states that if she cannot manage after she gets home, she will look into a facility later. would like to see pt more stabilized on medications prior to return home. wanting information regarding tracking systems for pt's with dementia. SW provided family with information on bracelets and other tracking systems. SW explained that psychiatry would be coming to see pt today. SW also explained that SW would find out from Hospice when they are able to open services with pt. SW explained that sometimes pt have to discharge the same day as Hospice and sometimes they do not. SW also encouraged them to reach out to the resources provided in book regarding hiring help at home. states she has someone lined up to help for a little bit of time, but will look at resources. SW spoke with Darline from Hospice and she has pt tentatively on the schedule for Monday morning 05-17. SW to update family when more information is known from MD regarding discharge timeline. SW will continue to follow. Assessment:Pt to benefit from Hospice services. Plan:Anticipate discharge home with family when medically stable. Hospice has pt on the schedule for Monday between -. Psychiatry to see pt today and work on medication adjustments. Private pay caregiving resources have been provided.SW will continue to follow. LAURA Bullock Addendum: 04/04/17 at 1711 by MADYSON CARBALLO SS SW updated pt's regarding Hospice intake time tentatively for Monday. states she is agreeable to this. SW to follow up again tomorrow. LAURA Bullock
--- NOTE | 2017-04-04 15:59 | NUR ---
Activity and Consults Sitter at bedside for previous hallucinations and aggressive behaviors. Calm and reorients easily this shift. Up to couch for meals. Showered. Spent much of shift visiting with family. Hospice visit with family and Psych consulted for mentation and medication alterations. Pending recomendations at this time. Soma bed remains in room completely open with sitter at bedside.
--- NOTE | 2017-04-04 17:14 | CONS ---
[address] [address] CONSULTATION REPORT PATIENT: YURI DAVILA : 1930 MR#: [id number] ADMIT: 04/02/2017 JOB ID: [id number] DATE OF SERVICE: 04/04/2017 IDENTIFICATION: The patient is an 86-year-old white male. He has been suffering with progressive memory loss and Lewy body dementia for the past seven years. REASON FOR ADMISSION: New onset slurred speech, rule out stroke. REASON FOR CONSULT: Medication consult for medication for behavior management. HISTORY OF PRESENT ILLNESS: I was asked to consult with the patient regarding psychiatric medications for behaviors. I reviewed charts and records kept by [facility]. I spent an hour interviewing the patient, as well as his and daughter. Client's main issue is progressive memory loss from Lewey body dementia. He has been struggling for over the past decade. In the last seven years he has had four TIAs and two CVAs. He has residual aphasia and left-sided weakness. He has had progressive memory loss. Last month, after his had some stressful physical issues she was dealing with, the stress of this appeared to cause hallucinations for the past month. He is hallucinating every day of soldiers moving around the house. He is hallucinating about spy cameras. He is a [place] war and it appears to be intrusive recall of previous events. He has been somewhat controlled with Klonopin 0.5 h.s. and Seroquel 25 b.i.d. They are concerned that the Seroquel is not potent enough and is not significantly changing the hallucinations. He appears to be struggling from both PTSD, stroke, and progressive dementia. He is currently showing no signs of emotional liability, but marked cognitive deficits. Mini-mental status showing severe dementia and marked impairment in coping and reality testing. PSYCHIATRIC REVIEW OF SYSTEMS: Negative for depression, zaheer, anxiety, or substance abuse. PAST MEDICAL HISTORY: MEDICATIONS: Klonopin 0.5 h.s., Seroquel 25 b.i.d., rivastigmine 1.5 b.i.d., Flomax 0.4 daily. ILLNESSES: Hypertension, history of [place], CVA 2011 and 2012, CABG x4, sleep apnea, chronic kidney disease. PAST PSYCHIATRIC HISTORY: No psychiatric history prior to symptoms of dementia and CVA. 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 He served two years in the [place] in the [place]. DRUGS AND ALCOHOL: None. SMOKING: None. LETHALITY: Suicidal ideation: None. Homicidal ideation: None. RELATIONSHIP: Happily to his . PHYSICAL EXAMINATION: Reviewed from ER and Internal Medicine and essentially normal. LABORATORY: CBC, electrolytes, thyroid, and liver normal. CT: Punctate lesion right 1 mm right frontal lobe. MENTAL STATUS EXAMINATION: Client neatly and stylishly dressed. His behavior was somewhat lethargic and withdrawn. Attitude: Aloof and detached. Speech: Monotone one-word answers. Mood: Euthymic. Affect: Flat and restricted. Thought process: Client unable to relate a coherent history. Does not appear to be responding to internal stimuli. Thought content: Significant for poverty of thought. Client was oriented to person, not place or date. Severe impairment in immediate, short, and long-term memory. Severe impairment in attention. Moderate impairment in insight and judgment. Moderate impairment in impulse control. Moderate impairment in reality testing. Competence to handle current stressors is currently being overwhelmed. 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 He is now struggling with symptoms of a stroke and dementia. As a result, symptoms of PTSD that had not previously surfaced are now surfacing with hallucinations of soldiers moving around his house and spy cameras. His Seroquel does not appear to be potent enough to target the hallucinations despite increasing doses. I reviewed with and daughter and the patient the relative risks, benefits, and side effects of different medication approaches. We discussed combinations of Seroquel, antidepressants; Risperdal, Seroquel, and Haldol. They chose a trial of low-dose Haldol. DIAGNOSIS: Carmel I: 1. Post-traumatic stress disorder. 2. Neurocognitive disorder, Lewy body dementia, severe. Carmel II: None. Carmel III: 1. Status post cerebrovascular accident in 2010 and 2012. 2. Hypertension. 3. History of myocardial infarction. 4. Coronary artery bypass grafting x4. 5. Sleep apnea. 6. Chronic kidney disease. Carmel IV: Moderate due to chronic illness. Carmel V: Current Global Assessment of Functioning equal to 25. PLAN: Recommend discontinue Seroquel. Recommend trial of Haldol 2 mg h.s. and 12.5 mg of Benadryl h.s. Would continue Klonopin at 0.5 h.s. Would recommend this trial for 10 days before altering medications and see if that helps with his sleep, his impulse control, and his hallucinations. Thank you for a very interesting consultation.
[2017-04-04] MEDS: diphenhydrAMINE 2.5 mg/mL 5 mL Syrup PO SCH (21:00)
[2017-04-04] MEDS: Haloperidol 5 mg/mL Inj IV SCH (22:04)
--- NOTE | 2017-04-04 22:15 | NUR ---
Confusion/Agitation pt is confuse and agitated, punching the wall and was about to hit the sitter. HS PO medication refused. notified and ordered enclosure bed for safety of pt and staff. Started @2039. switch PO meds to IV. Pt is still confuse and agitated kicking and punching the wall even in soma bed. Continuing to monitor. Addendum: 04/05/17 at 0733 by DARWIN TERRY RN 0630 pt's enclosure bed DC'd. Pt is still confuse but is compliant with care. 0645 pt is confuse and agitated. Trying to get out. AM Nursing team will order notify for enclosure bed.
[2017-04-05 06:20] VITALS: BP 184/81; PULSE 77; RESP 18; O2SAT 96
--- NOTE | 2017-04-05 09:12 | NUR ---
Palliative care note D/A: Note that pt spouse has signed on to [facility] and that they can open pt for services on Monday04/07/17 between 10-11. Family has decided to have pt dc home with spouse. Discussed with Dr. Delacruz his recommendations regarding if pt would benefit from dc on same day as hospice open. He notes that pt behaviors have been of concern. Pt seen by psychiatry who just started pt on new med (Haldol). Note that spouse had initially expressed fear in relation to care of spouse as he has evidenced some concerning behaviors. He appears to be doing better on new regime. Initial thought was for pt to be placed in facility but spouse is now wanting to try and have him at home with assistance of dtr who will be here another week or so. It may be beneficial for dtr to see pt behaviors, if concerns arise during that time. Dr. Delacruz recommends that it would be best for him to dc same day as [facility] open. This will allow for time for medical/psychiatric team to continue to assess pt needs at this time. Above discussed with LAURA Valadez, janusz. Phone message left for Ela who is intake at [facility]. Left her a message indicating that it may be good to have TOUCH UP WORKER start sooner rather than later (if there is flexibility) in case needs for alternate placement need exploration. P: Palliative care to follow. Janell LEON, [facility] Addendum: 04/05/17 at 1559 by MADYSON POLO PC note amendment Dr. Delacurz has decided to sign off as goals of care are clear. Dr. Renner visits and notes differing opinions between spouse and dtr. Dtr wants pt home but is not certain about decisive use of medications to control behaviors. Spouse is expressing that she does not feel safe with pt at home. Phone call to janusz Lee to explain. She will meet with family. Janell LEON, CCM
[2017-04-05 13:59] VITALS: BP 112/67; PULSE 80; RESP 18; O2SAT 98
--- NOTE | 2017-04-05 14:11 | PCM.PALLBR ---
Palliative Brief Note Date of Service Apr 05, 2017 . Goals of care determined; new POLST completed indicating family wishes for patient Palliative medicine will sign off at this time; please contact us if we may be of further assistance. Alfredo Delacruz MD Apr 05, 2017 14:11
--- NOTE | 2017-04-05 14:19 | NUR ---
Restraint/SOMA bed: During first introduction early this am, patient states to stay away from bed because "I will kick you in the face". Patient continued to make verbal threats of physical harm toward staff if we got close to him. Patient remained in [facility] bed, fluids, breakfast meal and toileting offered, but patient declined. Patient very active in [facility], moving all over the bed. On later assessments, patient calm and cooperative allowing for physical assessment, taking PO fluids, declined offer of toileting. Oriented to self, knows he is in hospital, but not the location. Did not express verbal threats of physical harm to staff. Family at bedside. Attempting to take patient out of [facility], OOB to chair for lunch. Patient calm and cooperative. Will continue to monitor. Addendum: 04/05/17 at 1434 by AYLEEN COATS RN Sitter remains at bedside.
--- NOTE | 2017-04-05 17:03 | NUR ---
Social Work-continued d/c planning: Data:EMR Reviewed. Pt is on day 3 of hospitalization for CVA per H&P. Pt is not medically stable anticipate several more days. SW informed by that pt's and daughter are not sure if they want to have pt return home. SW followed up with pt's and daughter to further discuss, SW role explained. and daughter state they are feeling like they do want to try and take pt home. states she has some apprehension about this, but feels like she at least wants to give it a try. SW explained that Hospice can open with pt on Monday morning between - and that pt would discharge on the same day as Hospice. Hospice had questions about DME for home. SW discussed with pt and daughter and at this time they do not feel like they will need any DME. SW informed Hospice of this information and also provided Hospice with an update about 's concerns. Hospice to inform Hospice SW that is assigned to the case about this so they are aware. Psychiatry involved and is working on medication adjustments. SW will continue to follow. Assessment:pt who would benefit from Hospice. Plan:Pt to discharge home on Monday with Hospice to open between 05-17. SW will continue to follow. LAURA Bullock
--- NOTE | 2017-04-05 17:31 | PCM.PNMED ---
Subjective Date of Service Apr 05, 2017 Subjective Patient became increasingly combative overnight in the evening and had replaced in a SOMA bed. Family is present today discussed the possibility of hospice care versus an alternative placement. Daughter and remain in disagreement about optimal decision. Interested in talking further with psychiatry for additional opinions. Per my evaluation patient remains blunted, no spontaneous speech but also no acute distress is not combative during the day. Exam Vital Signs Vital Sign - Last Date Time Temp Pulse Resp B/P Pulse Ox O2 Delivery O2 Flow Rate FiO2 04/05/17 13:59 36.5 80 18 112/67 98 Room Air Intake and Output 04/04/17 04/04/17 04/05/17 Cumulative From/Thru 15:00 23:00 07:00 04/02/17 10:31 - 04/05/17 05:31 Intake Total 1890 ml 0 ml 3318 ml Output Total 750 ml 350 ml 2450 ml Balance 1140 ml -350 ml 868 ml Intake Oral 1890 ml 0 ml 3298 ml IV Total 20 ml Output Urine Total 750 ml 350 ml 2450 ml # Voids 4 1 10 # Bowel Movements 1 1 General: Alert, Other (blunted affect, inappropriate thought content, no acute distress noted. ) Mouth: Mucous Membranes Dry Extremities: No cyanosis/clubbing/edma bilat Neurological: Grossly Neurologically Intact, Other (no focal deficits in strength noted) IVs and Medications Medications Reviewed: Medications were reviewed in detail Lab and Diagnostics Result Diagram: 04/02/17 1028 04/03/17 0600 Assessment & Plan 86-year-old male with medical history of presumed Lewy body dementia, multiple callie strokes, CAD, hypertension and dyslipidemia presented with a expressive aphasia # Acute agitation and aggressive behavior on the night of admission. Not present on admission - Likely exacerbation of his underlying Lewy body dementia - Reported more cooperative 2 nights prior but worse again overnight. - Psychiatry consulted, recommending a transition to Haldol which she believes may tear couple of days to have full effect. We will continue to appreciate their recommendations and opinion. - Tentative plan for transfer to hospice care and discharged home however we will continue to consider options with family, hospice not able to open until Monday earliest. # Acute transient aphasia suspicious for acute TIA - CT-head remonstrate chronic right frontal lobe encephalomalacia - Some concerns for hemologic stroke on initial CT seems ruled out on repeat CT - Speech therapy clear for Stim diet - PT on hold until mental status more stable and goals of care defined - No anticoagulation/statin/no TPA, DNR/DNI per DPOA and living will # Chronic Hypertension - Continue with current care Lewy Body Dementia - With components of hallucinations - Seroquel 25mg BID discontinued transition to Haldol and Benadryl. - Psych consult as noted above, see note for complete details. # Goals of care - Appreciate palliative care consult. Will followup with recs - Plan for hospice, but this is tentative as I suspect is not in complete agreement with plan but rather going along with daughter's recommendations. - We will continue to assess for ideal placement option. Dispo: 1-2 days pending improved mental status and behavior as well as establishing goals of care Pain Evaluation: Adequate Pain Control GI Prophylaxis: Not indicated VTE Prophylaxis: SCDs VTE Mechanical Devices: Intermittant Pneumatic CD Resuscitation Status: DNR/DNI:Do Not Resuscitate/Intubate Time spent 35 minutes Moises Renner DO Apr 05, 2017 17:31
--- NOTE | 2017-04-05 17:35 | PCM.ADCARE ---
Advance Care Planning Note Purpose of Encounter: Discussed advanced directives, medical evaluation today, possibility of placement reconsideration. Parties in Attendance: Patient's , daughter, myself Decisional Capacity: Patient is profoundly demented with no decisional capacity. is POA but strongly regards her daughter's opinions. Subjective: Patient remains combative. By the time scared for his return to home given previous history of aggressive language and behavior. Plan is currently to return home on hospice care, some concern as to what medications would be necessary to keep things feasible at home given his state of dementia. Objective: Patient is profoundly demented. Affect is blunted given Lewy body dementia. Intermittently agitated, at times physically aggressive. Goals of Care Determinations: Though no formal changes made in planning, both and daughter would like to further consider the realities of hospice care in the home versus possible long- term placement in locked door facility for profoundly demented patients. Given earliest hospice and open his Monday we still have an additional 24-48 hours to consider further. Patient's family would highly value the opinions of psychiatry and possibly palliative care and making final decision. Plan: Follow-up psychiatry, a more information on long-term placement, continue to evaluate possibility of home hospice. Observe with recent medication changes patient's changing of behavior CODE STATUS: DNR/DNI Moises Renner DO Apr 05, 2017 17:35
[2017-04-05] MEDS: diphenhydrAMINE 2.5 mg/mL 5 mL Syrup PO SCH ×2 (19:48→19:51)
[2017-04-05] MEDS: Haloperidol 5 mg/mL Inj IV SCH (21:00)
--- NOTE | 2017-04-05 21:28 | NUR ---
PT MENTATION/SOMA BED At start of shift, pt laying in bed, mostly calm. Pt took evening pill w/ water, no difficulties. RN offered scheduled liquid benadryl, pt took a sip, then gave it back to RN, stating, "this is too strong." RN attempted to perform physical assessment, pt stated, "don't you get too close." PRODUCTION EDITOR attempted to obtain VS, pt refused. Pt becoming more restless in bed, agitated and combative. called for orders to resume use of SOMA bed. Orders rec'd approx 2029. Pt continues to be restless in bed, pt kicking sides of bed, rolling up mattress inside enclosure. Pt is confused. Continue to monitor. Addendum: 04/06/17 at 0657 by SIVA ROCHE RN While in bed, pt has been restless, pt has not been observed to be sleeping during night. Pt moves bedding and mattress in bed. Pt did have a large BM last night, in which he was calmer for approx an hr. When pt taken out of bed to use BR, pt able to follow instruction after a few times of redirection. Pt has not been combative or voiced harm towards staff, which is a change/improvement from previous night. Pts arrived approx 0630. Soma bed upzippered and open. Soma restraint dc'd at this time. Pt is calm and cooperative now that is at bedside.
[2017-04-06 06:47] VITALS: BP 122/72; PULSE 84; RESP 18; O2SAT 94
--- NOTE | 2017-04-06 08:45 | NUR ---
Palliative care note D/A: Please note that Palliative Care completed POLST on pt with his spouse Caro Alvarez on 04/03/17. POLST signed by Dr. Corona. Pt medical condition noted as Lewy Body Dementia and stroke history. Caro chose for pt to be DNAR with comfort measures only. She did not wish for antibiotics to be uses and did not wish for medically assist nutrition by tube. POLST scanned and emailed today to Darline at [facility]. Per FEED MILLER notes, plan continues to be for dc home on Monday04/07/17 with [facility] to open same day. P: Palliative care has signed off case. Janell LEON, CCM
[2017-04-06 14:34] VITALS: BP 147/87; PULSE 78; RESP 18; O2SAT 99
--- NOTE | 2017-04-06 15:13 | PCM.PNPSY ---
Subjective Date of Service Apr 06, 2017 Subjective I spent 60 minutes both reviewing treatment plan with his and daughter over a 48-hour period, interviewing the patient and providing supportive/ educational psychotherapy. I spent less than 50% of the time counseling the patient. I reviewed the treatment plan with the him and discussed options available including the potential risks, benefits and side effects. Sanchez reports a marked improvement in thought organization and mood stability. His and his daughter report that he is continuing to have visual hallucinations and auditory hallucinations during the day. They are concerned that he may become combative at home. Staff reports that he has been active and participating respectfully in one-to-one interactions. He slept well and denies depression or manic or psychotic symptoms review. His and his daughter note multiple symptoms of visual hallucinations and auditory hallucinations. They are not aware that the Haldol has had any significant effect to this point. He denies medication side effects. He was not able to identify his medications nor what they were used to treat. Current Medications Current Medications Clonazepam 0.5 mg HS PO Last administered on 04/05/17 19:47; Admin Dose 0.5 MG ; Start 04/04/17 at 21:00 Haloperidol Lactate 2 mg HS IV Last administered on 04/04/17 22:04; Admin Dose 2 MG; Start 04/04/17 at 21:14 Mental Status Exam Vital Signs Vital Signs Date Time Temp Pulse Resp B/P Pulse Ox O2 Delivery O2 Flow Rate FiO2 04/06/17 14:34 36.7 78 18 147/87 99 Room Air 04/06/17 08:47 CPAP/BIPAP Appearance: Neat/well groomed Attitude: Pleasant, Cooperative Behavior: No unusual behavior Affect: Restricted, Blunted, Flat Mood: Euthymic Thought Process/Associations: Tangential, Other (poverty of thought hello) Speech Production: Normal Speech Rate: Normal Speech Articulation: Normal Thought Content: Suspicious Danger to Self/Suicidal Ideati: None Danger to Others: None Delusions: Paranoid (Endorses) Hallucinations: Auditory (Endorses), Visual (Endorses) Consciousness: Alert Orientation: Person Estimate Intellectual Function: Above Average Basis for IQ estimate: Awareness current events, Word use/vocabulary, Educational history, Employment history Attention/Concentration & Cogn: Impaired Insight: Limited Judgement: Limited Result Diagram: 04/02/17 1028 04/03/17 0600 Mental Health Plan The patient is an 86-year-old white male who 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 He is now struggling with symptoms of a stroke and dementia. As a result, symptoms of PTSD that had not previously surfaced are now surfacing with hallucinations of soldiers moving around his house and spy cameras. His Seroquel does not appear to be potent enough to target the hallucinations despite increasing doses. I reviewed with and daughter and the patient the relative risks, benefits, and side effects of different medication approaches. We discussed combinations of Seroquel, antidepressants; Risperdal, Seroquel, and Haldol. They chose a trial of low-dose Haldol. He has received Haldol for several days and I believe this is the appropriate medication Although he may not achieve complete remission of hallucinations. I believe he is appropriate For discharge although the family will need increasing support if he is to be maintained at home. [place] I: 1. Post-traumatic stress disorder. 2. Neurocognitive disorder, Lewy body dementia, severe. [place] II: None. [place] III: 1. Status post cerebrovascular accident in 2010 and 2011. 2. Hypertension. 3. History of myocardial infarction. 4. Coronary artery bypass grafting x4. 5. Sleep apnea. 6. Chronic kidney disease. [place] IV: Moderate due to chronic illness. [place] V: Current Global Assessment of Functioning equal to 25. Treatments Recommend family attempt to: * * Decrease frequency of relapse and need for re-hospitalization by enrolling in hospice and continuing on current medication regimen\ Provide low- stimulation environment * Establish a consistent sleep pattern with medications and good sleep hygiene * Continue to work on his Medication regimen with outpatient psychiatry targeting stabilization of mood and/or thought process Recommend the following psychiatric medications for outpatient: Haldol 2 mg at bedtime Benadryl 12.5 mg at bedtime Klonopin 0.5 mg at bedtime Praveen Mccollum MD Apr 06, 2017 15:13
--- NOTE | 2017-04-06 15:37 | PCM.PNMED ---
Subjective Date of Service Apr 06, 2017 Subjective Overnight patient became only moderately agitated, yelling at staff intermittently but was never physically combative which is an improvement from previous evenings. It was no necessity for restraint, or SOMA bed as one night previous. Patient refused medications and nursing staff did not push, as such she received the recommended medications yesterday evening as prescribed by psychiatry. Condition I met with patient's and daughter, and continue to talk extensively regarding prognosis of Lewy body dementia in addition to consideration for placement/advanced planning Exam Vital Signs Vital Sign - Last Date Time Temp Pulse Resp B/P Pulse Ox O2 Delivery O2 Flow Rate FiO2 04/06/17 14:34 36.7 78 18 147/87 99 Room Air Intake and Output 04/05/17 04/05/17 04/06/17 Cumulative From/Thru 15:00 23:00 07:00 04/02/17 10:31 - 04/06/17 06:23 Intake Total 1156 ml 250 ml 4724 ml Output Total 600 ml 150 ml 3200 ml Balance 556 ml 100 ml 1524 ml Intake Oral 1156 ml 250 ml 4704 ml IV Total 20 ml Output Urine Total 600 ml 150 ml 3200 ml # Voids 4 14 # Bowel Movements 1 2 General: Alert, Other (patient demonstrates a blunted affect, no spontaneous speech, though no agitation noted during my evaluation) Mouth: Mucous Membranes Dry Cardiovascular: Exam Unremarkable Neurological: Grossly Neurologically Intact IVs and Medications Medications Reviewed: Medications were reviewed in detail Lab and Diagnostics Result Diagram: 04/02/17 1028 04/03/17 0600 Assessment & Plan 86-year-old male with medical history of presumed Lewy body dementia, multiple callie strokes, CAD, hypertension and dyslipidemia presented with a expressive aphasia # Acute agitation and aggressive behavior on the night of admission. Not present on admission - Likely exacerbation of his underlying Lewy body dementia - Reported more cooperative 2 nights prior but worse again overnight. - Psychiatry consulted, recommending a transition to Haldol which she believes may tear couple of days to have full effect. We will continue to appreciate their recommendations and opinion. - Family is now reconsidering placement options, given evolution of daughter's opinion in addition to the preference of patient's giving concern for relapse of physical aggression in home setting. - As such we will now see placement in memory care unit, which will afford a higher level of observation and support on discharge. - Hospice consultation may still be considered as intake was conducted previously. #Lewy Body Dementia - Visual and auditory hallucinations are predominant symptom at this time, appear creating significant amount distress and patient and leading to agitation described above - On recommendation from psychiatry : Seroquel 25mg BID discontinued with transition to Haldol, Klonopin, and Benadryl. - Psych consult as noted above, see note for complete details. # Acute transient aphasia suspicious for acute TIA - CT-head remonstrate chronic right frontal lobe encephalomalacia - Some concerns for hemologic stroke on initial CT seems ruled out on repeat CT - Speech therapy clear for Stim diet - PT on hold until mental status more stable and goals of care defined - No anticoagulation/statin/no TPA, DNR/DNI per DPOA and living will # Chronic Hypertension - Continue with current care # Goals of care -Following further discussion with family today, we are adjusting plan discharge disposition to memory care detention care facility rather than home discharge. - Given history of periodic agitation, fluctuant sleeping schedule, and patient' s significant degree of strength, it certainly did not appear prudent for alone to attempt to care for her on return home once daughter departs. Dispo: 1-2 days pending improved mental status and behavior as well as establishing goals of care Pain Evaluation: Adequate Pain Control GI Prophylaxis: Not indicated VTE Prophylaxis: SCDs VTE Mechanical Devices: Intermittant Pneumatic CD Resuscitation Status: DNR/DNI:Do Not Resuscitate/Intubate Time spent 45 minutes Moises Renner DO Apr 06, 2017 15:37
--- NOTE | 2017-04-06 17:00 | NUR ---
Social Work-continued d/c planning: Data& assessment:EMR reviewed. Pt is on day 4 of hospitalization for CVA per H&P. Pt is not medically stable. SW updated by that pt's family has now decided that they would like pt to go to a facility instead of home. MD states pt will not be ready to discharge home tomorrow. SW called Hospice and left message cancelling intake for tomorrow and stating that this will need to be rescheduled. SW met with pt's and daughter to discuss. Pt's and daughter state they told MD that they would like to tour facilities and they have not made a decision yet if they want to have pt return home or go to facility. SW explained that this decision will need to be made soon, so that SW can move forward with discharge planning. SW explained that SW would be following up with them again tomorrow, both agreeable. SW will continue to follow. Plan:SW to follow up tomorrow with and daughter to determine if they plan to have pt go to memory care facility( private pay) or home. Once this decision has been made, SW to update Hospice. SW will continue to follow. LAURA Bullock
--- NOTE | 2017-04-06 18:17 | NUR ---
Activity/behavior Pt amb around unit multiple times this shift, tolerating activity well with no SOB noted. No aggressive behavior noted this shift thus far. SOMA bed remained open throughout this shift. Pt calm, cooperative with cares including showering. Family in and out throughout this shift. Sitter remains with pt. Bed in lowest, locked position and call light in reach.
[2017-04-06] MEDS: diphenhydrAMINE 2.5 mg/mL 5 mL Syrup PO SCH (20:13)
[2017-04-06] MEDS: Haloperidol 5 mg/mL Inj IV SCH (20:19)
--- NOTE | 2017-04-07 06:28 | NUR ---
Behavior Suspicious on initial assessment but cooperative taking medication with present and assisting. After medication administration he slept most of the shift only getting up to void. Currently resting without any complaints.
[2017-04-07] MEDS ORDERED: Ziprasidone 20 mg/mL Inj IM PRN (14:10)
--- NOTE | 2017-04-07 14:16 | PCM.PNMED ---
Subjective Date of Service Apr 07, 2017 Subjective Patient had an episode this afternoon requiring a code ingram. He became very agitated while trying to walk he had gotten tangled up some bedsheets. Exam Vital Signs Vital Sign - Last Date Time Temp Pulse Resp B/P Pulse Ox O2 Delivery O2 Flow Rate FiO2 04/07/17 08:30 CPAP/BIPAP 04/06/17 14:34 36.7 78 18 147/87 99 Intake and Output 04/06/17 04/06/17 04/07/17 Cumulative From/Thru 15:00 23:00 07:00 04/02/17 10:31 - 04/07/17 06:39 Intake Total 1200 ml 0 ml 5924 ml Output Total 950 ml 730 ml 4880 ml Balance 250 ml -730 ml 1044 ml Intake Oral 1200 ml 0 ml 5904 ml IV Total 0 ml 20 ml Output Urine Total 950 ml 730 ml 4880 ml # Voids 5 19 # Bowel Movements 1 3 Exam Situational: Elderly male who now is resting in bed Head: Normocephalic H medic Chest: Clear to auscultation Cor: Regular rate and rhythm S1-S2 Abdomen: Soft nontender bowel sounds present Extremities: no pedal edema Psych: Blunted affect. Now upon questioning Neuro: He is alert and does not answer questions appropriately Motor strength is intact bilaterally IVs and Medications Medications Reviewed: Medications were reviewed in detail Lab and Diagnostics Result Diagram: 04/02/17 1028 04/03/17 0600 Assessment & Plan 86-year-old male with medical history of presumed Lewy body dementia, multiple callie strokes, CAD, hypertension and dyslipidemia presented with a expressive aphasia # Acute agitation and aggressive behavior on the night of admission. Not present on admission - Likely exacerbation of his underlying Lewy body dementia - Reported more cooperative 2 nights prior but worse again overnight. - Psychiatry consulted, recommending a transition to Haldol which believes may take a couple of days to have full effect. We will continue to appreciate their recommendations and opinion. - Family is now reconsidering placement options, given evolution of daughter's opinion in addition to the preference of patient's giving concern for relapse of physical aggression in home setting. - As such we will now see placement in memory care unit, which will afford a higher level of observation and support on discharge. -Have also added Geodon 10 mg IM when necessary for increased agitation and aggressive behavior while in the hospital #Lewy Body Dementia - Visual and auditory hallucinations are predominant symptom at this time, appear creating significant amount distress and patient and leading to agitation described above - On recommendation from psychiatry : Seroquel 25mg BID discontinued with transition to Haldol, Klonopin, and Benadryl. - Psych consult as noted above, see note for complete details. # Acute transient aphasia suspicious for acute TIA - CT-head remonstrate chronic right frontal lobe encephalomalacia - Some concerns for hemologic stroke on initial CT seems ruled out on repeat CT - Speech therapy clear for Stim diet - PT on hold until mental status more stable and goals of care defined - No anticoagulation/statin/no TPA, DNR/DNI per DPOA and living will # Chronic Hypertension - Continue with current care # Goals of care -Following further discussion with family earlier this week, we are adjusting plan discharge disposition to memory care snf care facility rather than home discharge. - Given history of periodic agitation, fluctuant sleeping schedule, and patient' s significant degree of strength, it certainly did not appear prudent for alone to attempt to care for her on return home once daughter departs. Dispo: 1-2 days pending improved mental status and behavior as well as establishing goals of care GI Prophylaxis: Not indicated VTE Prophylaxis: SCDs VTE Mechanical Devices: Intermittant Pneumatic CD Resuscitation Status: DNR/DNI:Do Not Resuscitate/Intubate Time spent 30 minutes Lisa Rios MD Apr 07, 2017 14:16
--- NOTE | 2017-04-07 14:57 | NUR ---
Enclosed bed Patient took off all bedding and placed on the floor. Patient was scooting feet while standing on sheet and blankets. RT reported to nurse and nurse explained to patient this was a fall hazard and asked patient to please step off of blankets. Patient refused. Other approaches were used by stating we (staff) needed to place linen in laundry. Patient continued to refuse and continued scooting down to malloy. Patient was asked again to please let us take linen to wash and patient stated to push RN and grab RN wrists. Patient was asked not to push or hit. Patient pushed more and started to swing fist at RN. Another RN assisted and both RN assisted patient into wheelchair and removed linen off of the floor. Patient then started to push back forcefully in wheelchair and was kicking, hitting, and trying to grab at people. Code was called. notified and Enclosed bed was ordered at this time. Spouse was in room when patient was brought back to room and made aware of incident. Spouse agreed with enclosed bed.
--- NOTE | 2017-04-07 15:36 | NUR ---
Social Work: Readiness For Discharge Data: EMR reviewed. Patient is on day 5 of hospitalization for CVA per H&P. Patient was discussed in morning rounds. Per previous SW note, plan was for to tour memory care facilities and make a decision on placement. SW met with and daughter to discuss plan. has selected [facility] for placement. Blanca ([phone]) is the It Support Analyst at [facility] and she came to complete assessment. Blanca spoke with , daughter, patient & SW. Patient has been accepted to [facility]. Patient will be placed in a private room. Bed will not be available until Monday04/11/17. SW will continue to follow. Assessment: Patient will discharge to [facility]. Plan: Patient will discharge to [facility] when medically stable. Transportation will be arranged at time of pickup. Family is in agreement with discharge plan. SW will continue to follow. LAURA Villanueva
[2017-04-08 00:47] VITALS: BP 136/74; PULSE 77; RESP 18; O2SAT 98
--- NOTE | 2017-04-08 02:16 | NUR ---
Mentation Resting quietly in bed, independently repositioning sets off adry alarm but able to respond to direct questions and has voided in bathroom twice with SBA. Soma bed remains unzipped, low to floor and wheels locked, call light in reach.
[2017-04-08 10:40] VITALS: BP 147/81; PULSE 85; RESP 16; O2SAT 98
--- NOTE | 2017-04-08 11:34 | PCM.PNMED ---
Subjective Date of Service Apr 08, 2017 Subjective Patient is ambulating in malloy with nursing. He sits down and is cooperative however clearly cannot carry on a cogent conversation. Exam Vital Signs Vital Sign - Last Date Time Temp Pulse Resp B/P Pulse Ox O2 Delivery O2 Flow Rate FiO2 04/08/17 10:40 36.6 85 16 147/81 98 Room Air Intake and Output 04/07/17 04/07/17 04/08/17 Cumulative From/Thru 15:00 23:00 07:00 04/02/17 10:31 - 04/08/17 05:54 Intake Total 5 ml 200 ml 0 ml 6129 ml Output Total 4880 ml Balance 5 ml 200 ml 0 ml 1249 ml Intake Oral 200 ml 0 ml 6104 ml IV Total 5 ml 25 ml Output Urine Total 4880 ml # Voids 2 2 23 # Bowel Movements 0 3 Exam Constitutional: Elderly male in no acute distress Head: Normocephalic atraumatic Chest: Clear to auscultation Cor: Regular rate and rhythm S1-S2 Abdomen: Soft nontender bowel sounds present Extremities: No pedal edema Neuro: Alert but oriented to person only, motor strength is intact bilaterally IVs and Medications Medications Reviewed: Medications were reviewed in detail Lab and Diagnostics Result Diagram: 04/02/17 1028 04/03/17 0600 X-Rays, CTs and MRIs PROCEDURE: CT BRAIN WITHOUT CONTRAST ([id number]) INDICATIONS: CVA. hemoragic? TECHNIQUE: Noncontrast 4.5 mm thick angled axial sections acquired from the foramen magnum to the vertex, with coronal reformats. COMPARISON: CT brain 04/02/2017, 12/30/2016, 04/24/2015, 04/18/2014 FINDINGS: Image quality: Excellent. CSF spaces: Basal cisterns are patent. No extra-axial fluid collections. The ventricles are symmetric in size and shape. Brain: No intracranial bleeds or masses. Focal hypodensities in the right frontoparietal lobes come bridging over the convexity appear unchanged from previous exams consistent with prior infarcts. The 2 mm rounded hyperdensity noted in the cortex of the right parietal lobe, image 23, is unchanged from 12/30 and other priors, therefore not representing acute blood products but calcification. There is cerebral volume loss for age, with resultant ventricular and sulcal prominence. There are periventricular and deep white matter chronic small vessel ischemic changes. There is intracranial internal carotid artery atherosclerosis. Skull and face: Calvarium and visualized facial bones appear intact, without suspicious lesions. Sinuses: Visualized sinuses and mastoids are clear. IMPRESSION: 1. No acute intracranial abnormality. 2. Chronic right-sided frontoparietal infarcts. 3. Age related plane loss and chronic deep white matter ischemic changes. Dictated by: Jb Brizuela M.D. on 04/03/2017 at 15:33 Approved by: Jb Brizuela M.D. on 04/03/2017 a Assessment & Plan 86-year-old male with medical history of presumed Lewy body dementia, multiple callie strokes, CAD, hypertension and dyslipidemia presented with a expressive aphasia # Acute agitation and aggressive behavior on the night of admission. Not present on admission - Likely exacerbation of his underlying Lewy body dementia - Reported more cooperative 2 nights prior but worse again overnight. - Psychiatry consulted, recommending a transition to Haldol which believes may take a couple of days to have full effect. We will continue to appreciate their recommendations and opinion. - Family is now reconsidering placement options, given evolution of daughter's opinion in addition to the preference of patient's giving concern for relapse of physical aggression in home setting. - As such we will now see placement in memory care unit, which will afford a higher level of observation and support on discharge. -Have also added Geodon 10 mg IM when necessary for increased agitation and aggressive behavior while in the hospital -Did DC Benadryl as patient seemed according to more somnolent and tremulous and did seem to do better this morning off of it. #Lewy Body Dementia - Visual and auditory hallucinations are predominant symptom at this time, appear creating significant amount distress and patient and leading to agitation described above - On recommendation from psychiatry : Seroquel 25mg BID discontinued with transition to Haldol, Klonopin, and Benadryl. - Psych consult as noted above, see note for complete details. # Acute transient aphasia suspicious for acute TIA - CT-head remonstrate chronic right frontal lobe encephalomalacia - Some concerns for hemologic stroke on initial CT seems ruled out on repeat CT - Speech therapy clear for Stim diet - PT on hold until mental status more stable and goals of care defined - No anticoagulation/statin/no TPA, DNR/DNI per DPOA and living will # Chronic Hypertension - Continue with current care # Goals of care -Following further discussion with family earlier this week, we are adjusting plan discharge disposition to memory care senior living care facility rather than home discharge. - Given history of periodic agitation, fluctuant sleeping schedule, and patient' s significant degree of strength, it certainly did not appear prudent for alone to attempt to care for her on return home once daughter departs. Dispo: 1-2 days pending improved mental status and behavior as well as establishing goals of care GI Prophylaxis: Not indicated VTE Prophylaxis: SCDs VTE Mechanical Devices: Intermittant Pneumatic CD Resuscitation Status: DNR/DNI:Do Not Resuscitate/Intubate Time spent 20 minutes Lisa Rios MD Apr 08, 2017 11:34
--- NOTE | 2017-04-08 18:34 | NUR ---
[place]/Behavior Daughter made nurse aware that patient was starting to get "agitated & looking for his shoes", Haloperidol 1mg po admin, patient asked to fold a pile of laundry which kept patient occupied for 15-20 minutes, RN & daughter took patient for numerous laps around unit before going back to room, seems to be more relaxed & less focused on leaving. Needs re-oriented to place constantly & that he's likely going home tomorrow for which brings him comfort & then forgets. Family at the bedside. No combative behavior during shift.
[2017-04-08 20:04] VITALS: BP 159/85; PULSE 77; RESP 16; O2SAT 97
--- NOTE | 2017-04-08 23:04 | NUR ---
Mentation Patient exited room and made it jail down malloy. [place] alarm set, oriented to bed and time. Family indicated that he walked many laps in the malloy today and is usually very athletic. Will pass to dayshift and EDUCATIONAL SPEECH LANGUAGE CLINICIAN's to offer ambulation frequently.
[2017-04-09 04:17] VITALS: BP 140/68; PULSE 72; RESP 16; O2SAT 96
[2017-04-09 09:08] VITALS: BP 123/71; PULSE 82; RESP 16; O2SAT 97
--- NOTE | 2017-04-09 10:51 | PCM.PNMED ---
Subjective Date of Service Apr 09, 2017 Subjective Patient ambulating with assistance of nursing in the halls. Exam Vital Signs Vital Sign - Last Date Time Temp Pulse Resp B/P Pulse Ox O2 Delivery O2 Flow Rate FiO2 04/09/17 09:08 36.4 82 16 123/71 97 Room Air Intake and Output 04/08/17 04/08/17 04/09/17 Cumulative From/Thru 15:00 23:00 07:00 04/02/17 10:31 - 04/09/17 06:17 Intake Total 1272 ml 0 ml 7401 ml Output Total 325 ml 5205 ml Balance 1272 ml -325 ml 2196 ml Intake Oral 1272 ml 0 ml 7376 ml IV Total 25 ml Output Urine Total 325 ml 5205 ml # Voids 2 25 # Bowel Movements 0 0 3 Exam Constitutional: Elderly male in no acute distress Head: Normocephalic atraumatic Chest: Clear to auscultation Cor: Regular rate and rhythm S1-S2 without murmur Abdomen: Soft nontender bowel sounds normal Extremities: No pedal edema Neuro: Alert, oriented to person only Motor strength is intact bilaterally IVs and Medications Medications Reviewed: Medications were reviewed in detail Lab and Diagnostics Result Diagram: 04/03/17 0600 X-Rays, CTs and MRIs PROCEDURE: CT BRAIN WITHOUT CONTRAST ([id number]) INDICATIONS: CVA. hemoragic? TECHNIQUE: Noncontrast 4.5 mm thick angled axial sections acquired from the foramen magnum to the vertex, with coronal reformats. COMPARISON: CT brain 04/02/2017, 12/30/2016, 04/24/2015, 04/18/2014 FINDINGS: Image quality: Excellent. CSF spaces: Basal cisterns are patent. No extra-axial fluid collections. The ventricles are symmetric in size and shape. Brain: No intracranial bleeds or masses. Focal hypodensities in the right frontoparietal lobes come bridging over the convexity appear unchanged from previous exams consistent with prior infarcts. The 2 mm rounded hyperdensity noted in the cortex of the right parietal lobe, image 23, is unchanged from 12/30 and other priors, therefore not representing acute blood products but calcification. There is cerebral volume loss for age, with resultant ventricular and sulcal prominence. There are periventricular and deep white matter chronic small vessel ischemic changes. There is intracranial internal carotid artery atherosclerosis. Skull and face: Calvarium and visualized facial bones appear intact, without suspicious lesions. Sinuses: Visualized sinuses and mastoids are clear. IMPRESSION: 1. No acute intracranial abnormality. 2. Chronic right-sided frontoparietal infarcts. 3. Age related plane loss and chronic deep white matter ischemic changes. Dictated by: Jb Brizuela M.D. on 04/03/2017 at 15:33 Approved by: Jb Brizuela M.D. on 04/03/2017 a Assessment & Plan 86-year-old male with medical history of presumed Lewy body dementia, multiple callie strokes, CAD, hypertension and dyslipidemia presented with a expressive aphasia # Acute agitation and aggressive behavior on the night of admission. Not present on admission - Likely exacerbation of his underlying Lewy body dementia - Reported more cooperative 2 nights prior but worse again overnight. - Psychiatry consulted, recommending a transition to Haldol which believes may take a couple of days to have full effect. We will continue to appreciate their recommendations and opinion. - Family is now reconsidering placement options, given evolution of daughter's opinion in addition to the preference of patient's giving concern for relapse of physical aggression in home setting. - As such we will now see placement in memory care unit, which will afford a higher level of observation and support on discharge. -Have also added Geodon 10 mg IM when necessary for increased agitation and aggressive behavior while in the hospital -Did DC Benadryl as patient seemed according to more somnolent and tremulous and did seem to do better this morning off of it. -Have added Haldol 1 mg by mouth in a.m. daily. On April 09 -Have also added Aricept 5 mg by mouth daily on April 09 #Lewy Body Dementia - Visual and auditory hallucinations are predominant symptom at this time, appear creating significant amount distress and patient and leading to agitation described above - On recommendation from psychiatry : Seroquel 25mg BID discontinued with transition to Haldol, Klonopin, and Benadryl. - Psych consult as noted above, see note for complete details. -Added Aricept 5 mg by mouth daily on April 09 -Awaiting placement at [facility] on Monday # Acute transient aphasia suspicious for acute TIA - CT-head remonstrate chronic right frontal lobe encephalomalacia - Some concerns for hemologic stroke on initial CT seems ruled out on repeat CT - Speech therapy clear for Stim diet - PT on hold until mental status more stable and goals of care defined - No anticoagulation/statin/no TPA, DNR/DNI per DPOA and living will # Chronic Hypertension - Continue with current care # Goals of care -Following further discussion with family earlier this week, we are adjusting plan discharge disposition to memory care [facility] rather than home discharge. - Given history of periodic agitation, fluctuant sleeping schedule, and patient' s significant degree of strength, it certainly did not appear prudent for alone to attempt to care for her on return home once daughter departs. Dispo: 1-2 days pending improved mental status and behavior as well as establishing goals of care GI Prophylaxis: Not indicated VTE Prophylaxis: SCDs VTE Mechanical Devices: Intermittant Pneumatic CD Resuscitation Status: DNR/DNI:Do Not Resuscitate/Intubate Time spent 20 minutes Lisa Rios MD Apr 09, 2017 10:51
--- NOTE | 2017-04-09 14:37 | NUR ---
Mentation Patient alert and confused. Patient was administered new order of 1mg PO Haloperidol this morning. Patient took medication without any hesitation. Patient walked unit hallway with staff and family today, Steady gait observed. Patient was also given pencil/pens and paper to draw with due to liking to sketch when younger. Drawing kept patient occupied for a couple of hours. Patient has been pleasant and cooperative with care today.
[2017-04-09] MEDS: Haloperidol 5 mg/mL Inj IVPUSH PRN (16:04)
[2017-04-09 16:40] VITALS: BP 156/78; PULSE 80; RESP 16; O2SAT 98
--- NOTE | 2017-04-09 17:41 | NUR ---
Social Work: JANNETTE JANNETTE was unable to be signed today. SW was unable to locate JANNETTE on chart. SW will reattempt at a later time. LAURA Villanueva
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
[2017-04-09 20:45] VITALS: BP 168/76; PULSE 68; RESP 16; O2SAT 98
--- NOTE | 2017-04-10 02:58 | NUR ---
Mentation up out of bed x3 so far, voiding in BR and easily reoriented to time/place getting back to bed without complaint.
[2017-04-10 06:22] VITALS: BP 153/85; PULSE 76; RESP 16; O2SAT 98
[2017-04-10 12:53] VITALS: BP 149/89; PULSE 82; RESP 16; O2SAT 98
--- NOTE | 2017-04-10 13:35 | NUR ---
Social Work-readiness for discharge/multidisciplinary rounds: Data:EMR reviewed. Pt is on day 8 of hospitalization for CVA per H&P. Pt is likely medically stable tomorrow. HARRISON spoke with Bettina at [facility] who confirms they will have spot for pt tomorrow in the afternoon. SW explained pt will need to be over around 1300, [facility] is agreeable to this. HARRISON spoke with Darline from Hospice who confirms that they are able to open services with pt tomorrow 04/11 between 2-3pm. Darline to get in touch with [facility] regarding equipment. Pt at this time does not have capacity for self care, requiring memory care placement. HARRISON placed a call to [facility] to confirm plan, no answer, message left requesting a return call. HARRISON will continue to follow. Assessment:pt who would benefit from Memory care. Plan:Pt to discharge to [facility] tomorrow around 1300 via POV. SW to confirm plan with [facility] again tomorrow too. Hospice to open services tomorrow between 2-3. HARRISON placed a call to [facility] to confirm plan, no answer, message left requesting a return call. HARRISON will continue to follow. LAURA Bullock Addendum: 04/10/17 at 1534 by MADYSON CARBALLO SW received a call back from and provided her with update of discharge tomorrow with [facility]osp[facility] services, agreeable. SW discussed transportation options, private pay w/c van vs private car. Unclear at this time if [facility] will have transport. states she would prefer to drive pt over in her private car. SW to continue to follow. LAURA Bullock
[2017-04-10] MEDS: Haloperidol 5 mg/mL Inj IVPUSH PRN (13:55)
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
--- NOTE | 2017-04-10 14:39 | PCM.ADCARE ---
Advance Care Planning Note Purpose of Encounter: Goals of care Parties in Attendance: Patient and Decisional Capacity: Patient has no decisional capacity but is decision maker Subjective: Since describes the patient has no quality of life such as is with his significant dementia. Patient's mentions that if a medical issue came up she would not want to for example have IV antibiotics for urinary tract infection. But would want any pain meds if the patient was in pain. She does not want any particular life-sustaining therapy for the patient if it does not help his quality and comfort of life. Objective: See physical exam from today Goals of Care Determinations: Patient's does mention that the patient has a pulse form which does say comfort care only and no IV antibiotics no tube feedings. Plan: Comfort care and proceed with placement and advanced assisted living for his continuing care at [facility]. CODE STATUS: DNR/DNI, comfort care Time Spent Adv.Care Plannin minutes Adv. Care Plan Documenation: Patient currently has a pulse form that has been completed as mentioned above Lisa Rios MD Apr 10, 2017 14:39
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
[2017-04-10 19:59] VITALS: BP 108/69; PULSE 86; RESP 14; O2SAT 94
[2017-04-10 20:13] VITALS: BP 124/79; PULSE 74; RESP 16; O2SAT 98
--- NOTE | 2017-04-10 22:05 | NUR ---
VS the vs documented at 1958 were charted on the wrong patient. THESE ARE NOT HIS VITALS!
--- NOTE | 2017-04-11 06:08 | NUR ---
NOC PT slept well all night. Sitter at bedside for safety. No agitation. No prn meds given. SOma bed open. PT up to BR during night and returned right to sleep. Plan for d/c today.
[2017-04-11 06:58] VITALS: BP 135/81; PULSE 78; RESP 16; O2SAT 99
--- NOTE | 2017-04-11 07:01 | PCM.DIMED ---
Discharge Instructions Date of Service Apr 11, 2017 Dates of Hospitalization Apr 02, 2017 at 12:18 Discharge Diagnosis Discharge Diagnosis Dementia, possible TIA/CVA Diet Discharge Diet: Heart Healthy Activity Discharge Activity: Other (as tolerated) Call your provider Call your provider for: Fever or Chills, Shortness of breath, Bleeding, Chest pain, Vomitting, Excessive diarrhea, Weakness (unilateral) Patient Instructions Follow-up Provider: Lamont Luo MD Follow-up with PCP in: 2 weeks (sooner if problems) Lisa Rios MD Apr 11, 2017 07:01
[2017-04-11] MEDS ORDERED: POLY17PO6 PO (07:05)
[2017-04-11] MEDS ORDERED: HAL05 PO (07:05)
[2017-04-11] MEDS ORDERED: HALO1TAB PO ×2 (07:05)
[2017-04-11] MEDS ORDERED: DONE5TAB4 PO (07:05)
[2017-04-11] MEDS ORDERED: KLO5T PO (07:05)
--- NOTE | 2017-04-11 07:14 | PCM.DC.MED ---
Discharge Summary Date of Service Apr 11, 2017 Dates of Hospitalization Date of Hospital Admission Apr 02, 2017 at 12:18 Date of Discharge: Apr 11, 2017 Providers: Admitting Physician: Alfredo oSng Primary Care Physician: Lamont Luo MD Attending Physician: Lisa Rios MD Diagnosis at Time of Discharge Diagnosis at Time of Discharge Dementia, possible TIA/CVA Consultations Psychiatry Procedures XRay, CTs & MRIs PROCEDURE: CT BRAIN WITHOUT CONTRAST ([id number]) INDICATIONS: CVA. hemoragic? TECHNIQUE: Noncontrast 4.5 mm thick angled axial sections acquired from the foramen magnum to the vertex, with coronal reformats. COMPARISON: CT brain 04/02/2017, 12/30/2016, 04/24/2015, 04/18/2014 FINDINGS: Image quality: Excellent. CSF spaces: Basal cisterns are patent. No extra-axial fluid collections. The ventricles are symmetric in size and shape. Brain: No intracranial bleeds or masses. Focal hypodensities in the right frontoparietal lobes come bridging over the convexity appear unchanged from previous exams consistent with prior infarcts. The 2 mm rounded hyperdensity noted in the cortex of the right parietal lobe, image 23, is unchanged from 12/30 and other priors, therefore not representing acute blood products but calcification. There is cerebral volume loss for age, with resultant ventricular and sulcal prominence. There are periventricular and deep white matter chronic small vessel ischemic changes. There is intracranial internal carotid artery atherosclerosis. Skull and face: Calvarium and visualized facial bones appear intact, without suspicious lesions. Sinuses: Visualized sinuses and mastoids are clear. IMPRESSION: 1. No acute intracranial abnormality. 2. Chronic right-sided frontoparietal infarcts. 3. Age related plane loss and chronic deep white matter ischemic changes. Dictated by: Jb Brizuela M.D. on 04/03/2017 at 15:33 Approved by: Jb Brizuela M.D. on 04/03/2017 a Brief History Patient Identification: Mr. Alvarez was admitted for new onset slurred speech, and found to have an acute small stroke vs. TIA per CT head which showed punctate lesion 1 mm at the posterior right frontal, mild suspicious for hemorrhage. Overnight he had rapidly improving sx NIHSS 7--> 2. He was not considered for further workup as he is a DNR/DNI and per his (TOMMY), she wants nonaggressive management. Hospital Course: Today (04/03) patient alert and oriented 2, with some slurring of speech. Patient denies any unilateral weakness in extremities, no headaches, lightheadedness, or dizziness. He drowsy, no signs of pain, shortness of breath , or other distress. at bedside gives his history on interview. Hospital Course 86-year-old male with medical history of presumed Lewy body dementia, multiple callie strokes, CAD, hypertension and dyslipidemia presented with a expressive aphasia # Acute agitation and aggressive behavior on the night of admission. Not present on admission - Likely exacerbation of his underlying Lewy body dementia - Psychiatry consulted, recommending a transition to Haldol which believes may take a couple of days to have full effect. We will continue to appreciate their recommendations and opinion. - Family is now reconsidering placement options, given evolution of daughter's opinion in addition to the preference of patient's giving concern for relapse of inability to care for him alone in home setting. - As such we will now see placement in memory care unit, which will afford a higher level of observation and support on discharge. -Did DC Benadryl as patient seemed according to more somnolent and tremulous and did seem to do better this morning off of it. -Have added Haldol 1 mg by mouth in a.m. daily. On April 09 since more somnolent this a.m. we will go ahead and change the morning Haldol to a lower dose. -Have also added Aricept 5 mg by mouth daily on April 09 #Lewy Body Dementia - Visual and auditory hallucinations are predominant symptom at this time, appear creating significant amount distress and patient and leading to agitation described above - On recommendation from psychiatry : Seroquel 25mg BID discontinued with transition to Haldol, Klonopin, - Psych consult as noted above, see note for complete details. -Added Aricept 5 mg by mouth daily on April 09 -Awaiting placement at [facility] on MondayApril 11 # Acute transient aphasia suspicious for acute TIA - CT-head remonstrate chronic right frontal lobe encephalomalacia - Some concerns for hemorrhagic stroke on initial CT seems ruled out on repeat CT - Speech therapy clear for diet - No anticoagulation/statin/no TPA, DNR/DNI per DPOA and living will # Chronic Hypertension - Continue with current care -not requiring any antihypertensives here # Goals of care -Following further discussion with family earlier this week, we are adjusting plan discharge disposition to memory care retirement care facility rather than home discharge. - Given history of periodic agitation, fluctuant sleeping schedule, and patient' s significant degree of strength, it certainly did not appear prudent for alone to attempt to care for her on return home once daughter departs. Exam Vital Signs (Last) Date Time Temp Pulse Resp B/P Pulse Ox O2 Delivery O2 Flow Rate FiO2 04/11/17 06:58 36.5 78 16 135/81 99 Room Air Exam Constitutional: Elderly male who is pleasant this morning drinking cup of coffee along with eating some applesauce Head: Normocephalic atraumatic Eyes: PERRLA GC EOMI Mouth: No lesions Neck: No adenopathy Chest: Clear to auscultation Cor: Regular rate and rhythm S1-S2 without murmur Abdomen: Soft nontender bowel sounds present Extremities: No pedal edema Psych: Mood and affect are somewhat blunted but pleasant smiles Skin: No rashes Neuro: Alert oriented to person, motor strength is intact bilaterally Test 04/02/17 10:28 04/02/17 12:05 04/03/17 06:00 White Blood Count 4.6th/mm3 (3.8-10.1) Red Blood Count 4.03mil/mm3 (4.40-5.80) Hemoglobin 12.0g/dL (13.8-17.2) Hematocrit 37.4% (41.0-50.0) Mean Corpuscular Volume 92.8fL (81-100) Mean Corpuscular Hemoglobin 29.8pg (27.0-35.0) Mean Corpuscular Hemoglobin Concent 32.1% (32.0-37.0) Red Cell Distribution Width 13.7% (12.3-15.4) Platelet Count 180bil/L (150-400) Neutrophils (%) (Auto) 72.1% (40-74) Lymphocytes (%) (Auto) 15.5% (14-46) Monocytes (%) (Auto) 9.6% (4-12) Eosinophils (%) (Auto) 2.0% (0-5) Basophils (%) (Auto) 0.4% (0-3) Prothrombin Time 10.2sec (8.1-12.5) Prothromb Time International Ratio 0.95ratio Activated Partial Thromboplast Time 26.6sec (22.8-33.0) Total Bilirubin 0.5mg/dL (0.0-1.2) Aspartate Amino Transf (AST/SGOT) 28U/L (0-50) Alanine Aminotransferase (ALT/SGPT) 13U/L (0-44) Alkaline Phosphatase 49U/L (25-160) Troponin T 0.010ug/L (0.0-0.011) Total Protein 7.3g/dL (6.4-8.4) Albumin 3.8g/dL (3.4-5.0) Thyroid Stimulating Hormone (TSH) 3.410uIU/mL (0.450-4.500) Urine Color Yellow (YELLOW) Urine Appearance Clear (CLEAR,HAZY) Urine pH 6.0 (5.0-8.0) Urine Specific [place] 1.018 (1.003-1.035) Urine Protein Negativemg/dL (NEG,TRACE) Urine Glucose (UA) Negativemg/dL (NEGATIVE) Urine Ketones Negativemg/dL (NEGATIVE) Urine Occult Blood Negative (NEGATIVE) Urine Nitrite Negative (NEGATIVE) Urine Bilirubin Negative (NEGATIVE) Urine Urobilinogen Normalmg/dL (NORMAL) Urine Leukocyte Esterase Negative (NEGATIVE) Urine RBC 0-2/hpf (0-2) Urine WBC 0-5/hpf (0-5) Urine Epithelial Cells Few/hpf (NONE-MOD) Urine Crystals None seen (NONE SEEN) Urine Bacteria None/hpf (NONE-FEW) Urine Hyaline Casts None/lpf (NONE) Urine Granular Casts None seen (NONE SEEN) Urine Waxy Casts None seen (NONE SEEN) Urine Red Blood Cell Casts None seen (NONE SEEN) Urine White Blood Cell Casts None seen (NONE SEEN) Urine Mucus None seen (None Seen) Urine Trichomonas None seen (NONE SEEN) Urine Yeast None (NONE SEEN) Urinalysis Comment None Urine Culture Reflexed Not indicated Sodium Level 149mEq/L (134-144) Potassium Level 4.1mEq/L (3.5-5.2) Chloride Level 111mEq/L (97-108) Carbon Dioxide Level 21mmol/L (18-29) Blood Urea Nitrogen 15mg/dL (8-27) Creatinine 1.26mg/dL (0.76-1.27) Estimat Glomerular Filtration Rate 58mL/min (>59) Glucose Level 95mg/dL (60-99) Calcium Level 9.0mg/dL (8.5-10.1) Discharge Medications Discharge Medications Clonazepam (Clonazepam) 0.5 Mg Tablet 0.5 MG PO HS Prescribed by: ILSA RIOS MD Donepezil (Aricept) 5 Mg Tablet 5 MG PO HS Prescribed by: LISA RIOS MD Haloperidol (Haloperidol) 0.5 Mg Tablet 0.25 MG PO DAILY Prescribed by: LISA RIOS MD Haloperidol (Haloperidol) 1 Mg Tablet 2 MG PO HS Prescribed by: LISA RIOS MD Tamsulosin (Flomax) 0.4 Mg Capsule 0.4 MG PO DAILY (Reported) As needed Haloperidol (Haloperidol) 1 Mg Tablet 1 MG PO Q6H PRN PRN agitation Prescribed by: LISA RIOS MD Polyethylene Glycol 3350 (Miralax) 17 Gm Powd.pack 17 GM PO DAILY PRN PRN For Constipation Prescribed by: LISA RIOS MD Followup Plan Disposition: Assisted-living, [facility] Discharge Diet: Heart Healthy Discharge Activity: Other (as tolerated) Follow-up Provider: Lamont Luo MD Follow-up with PCP in: 2 weeks (sooner if problems) Time spent 60 minutes copies to: Lamont Luo MD, Cheryl A MD Apr 11, 2017 07:14
--- NOTE | 2017-04-11 12:17 | NUR ---
Social Work-discharge: Data:EMR Reviewed. Pt is on day 9 of hospitalization for CVA per H&P. Pt is medically stable for discharge. HARRISON spoke with Blanca from [facility] this and morning and she is agreeable to discharge today. HARRISON faxed all orders and Blanca confirmed they have received them. Blanca requested that SW fax back admission orders once they have been completed. HARRISON had MD complete these orders and SW faxed them back over to [facility]. [facility] does not have transportation available today. confirms she will drive him at 1300. SW called Hospice and left message informed them of discharge. Hospice to open with pt between 2-3, Family and [facility] aware. HARRISON spoke with family who is updated and agreeable to plan. Rn,UC,pt/family, [facility], and Hospice all updated and agreeable to plan. Assessment:pt to benefit from memory care, does not have capacity for self care at this time. Plan:Pt to discharge to [facility](private pay) today via POV at 1300. All discharge and admission orders faxed to Blanca at [facility] who is agreeable to plan. Hospice to be out between 2-3 this afternoon. Rn,UC,pt/family, [facility], and Hospice all updated and agreeable to plan. LAURA Bullock
--- NOTE | 2017-04-11 12:41 | NUR ---
DISCHARGE Pt dc'd unit at 1230, off unit to [facility] in w/c, accompanied by SANITATION ENGINEER, pt's and dtrs. Pt alert, responding to name. He was aware that "it was time to go." Pleasant, cooperative. Vital signs stable, denies any pain and in no apparent distress. IV dc'd intact, all belongings returned. Per HARRISON Valadez, report was not needed to call over to [facility]. All instructions for diet, activity, medications and prescriptions sent with family.
== END 2017-04-11 13:17 | disposition hospice, home (50) | DRG 57 ==
LOC: SED 10:05 → MPC 12:18
PROVIDERS: ADMIT Internal Medicine; ATTEND Internal Medicine
DX: G31.83 Neurocognitive disorder with Lewy bodies (principal); F02.81 Dementia in other diseases classified elsewhere, unspecified severity, with behavioral disturbance; R44.0 Auditory hallucinations; R47.01 Aphasia; F43.11 Post-traumatic stress disorder, acute; I67.9 Cerebrovascular disease, unspecified; R44.1 Visual hallucinations; Z86.73 Personal history of transient ischemic attack (TIA), and cerebral infarction without residual deficits; I10 Essential (primary) hypertension; R73.9 Hyperglycemia, unspecified; Z66 Do not resuscitate; I25.2 Old myocardial infarction; Z95.1 Presence of aortocoronary bypass graft